=== PATIENT | male | born 1960 | race Caucasian/White ===

== ENCOUNTER 2021-03-22 13:10 | Inpatient (IN) | payer BC, OTHER ==
[~2021-03-22] VITALS: Ht 175.3 cm; Wt 91.5 kg
[2021-03-22] MEDS ORDERED: MORPHINE SULFATE 4 MG/ML SYR/VIAL IV ONE ×2 (14:30→16:45)
[2021-03-22] MEDS ORDERED: diazePAM 5 MG TAB PO ONE (14:30)
[2021-03-22] MEDS ORDERED: ONDANSETRON HCL 4 MG/2 ML VIAL IV ONE (14:30)
[2021-03-22] MEDS ORDERED: LORazepam 2MG/ML-1ML VIAL IV ONE (16:45)
[2021-03-22] MEDS ORDERED: HYDROmorphone HCL 2 MG/ML VL IV ONE (19:30)
[2021-03-22 20:30] LABS: Basophils # (auto) 0.1 10 ^3/uL (0-0.2); Basophils % (auto) 0.9 % (0.0-2.0); Eosinophils # (auto) 0 10 ^3/uL (0-0.8); Eosinophils % (auto) 0.1 % (0.0-7.0); Hematocrit 40.6 % (41.0-53.0); Hemoglobin 14.6 g/dL (13.5-17.5); Lymphocytes # (auto) 0.4 10 ^3/uL (0.4-5.4); Lymphocytes % (auto) 2.4 % (10.0-50.0); Mean Corpuscular Hemoglobin 33.4 pg (28.0-32.0); Mean Corpuscular Volume 92.7 fL (80.0-100.0); Monocytes # (auto) 0.9 10 ^3/uL (0-1.3); Monocytes % (auto) 5.3 % (0.0-12.0); Neutrophils # (auto) 15.1 10 ^3/uL (1.6-8.6); Neutrophils % (auto) 91.3 % (37.0-80.0); Nucleated Red Blood Cells % 0.2 %; Red Blood Cells 4.38 10^6/uL (4.5-5.90); Red Cell Distribution Width 13.5 % (11.8-14.3); White Blood Cell 16.5 10^3/uL (4.4-10.8)
[2021-03-22 20:39] LABS: BUN/Creatinine Ratio 22.5; Calcium 9.9 mg/dL (8.5-10.1); Potassium 4.2 mmol/L (3.5-5.1)
[2021-03-22] MEDS ORDERED: DEXTROSE (50%) 50ML SYRG IV PRN (23:30)
[2021-03-22] MEDS ORDERED: DOCUSATE SOD 100 MG CAP PO PRN (23:30)
[2021-03-22] MEDS ORDERED: LORazepam 2MG/ML-1ML VIAL IV PRN (23:30)
[2021-03-22] MEDS ORDERED: cefTRIAXone 1GM/50ML D5W 50 ML IV ONE (23:30)
[2021-03-22] MEDS: SODIUM CHLORIDE 0.9% 1,000 ML IV SCH (23:30)
[2021-03-22] MEDS ORDERED: MORPHINE SULFATE 4 MG/ML SYR/VIAL IV PRN (23:30)
[2021-03-22] MEDS ORDERED: ACETAMINOPHEN 325 MG TAB PO PRN (23:30)
[2021-03-23] VITALS (8 sets, daily range): BP systolic 130–170; BP diastolic 65–93
[2021-03-23] MEDS: HYDROcodone-ACET 5/325MG TAB PO PRN ×2 (00:09→08:17)
[2021-03-23] MEDS ORDERED: MORPHINE SULFATE INJECTION 2 MG/ML SYRG IV PRN (00:15)
[2021-03-23] MEDS ORDERED: NITROGLYCERIN 0.4 MG SL TAB SL PRN (00:15)
[2021-03-23] MEDS: ONDANSETRON HCL 4 MG/2 ML VIAL IV PRN (00:59)
[2021-03-23] MEDS ORDERED: CALCIUM CARB 500 MG CHEW TAB PO ONE (01:00)
[2021-03-23] MEDS ORDERED: KETOROLAC TROMETH 30 MG/ML 1ML VIAL IV ONE (01:00)
[2021-03-23] MEDS ORDERED: ATOR20TA PO (02:17)
[2021-03-23] MEDS ORDERED: LISI20TA28 PO (02:17)
[2021-03-23] MEDS ORDERED: ASPI-543 PO (02:17)
[2021-03-23] MEDS ORDERED: METF-371 PO (02:17)
[2021-03-23] MEDS: ACCU-CHEK COMFORT CURVE STRIP VI SCH ×4 (07:16→22:15)
[2021-03-23] MEDS: InsuLIN REG 1unit/0.01ml Soln (100units/ml) SC SCH ×5 (07:17→22:15)
[2021-03-23 09:54] LABS: Basophils # (auto) 0.1 10 ^3/uL (0-0.2); Basophils % (auto) 0.5 % (0.0-2.0); Eosinophils # (auto) 0 10 ^3/uL (0-0.8); Hematocrit 37.3 % (41.0-53.0); Hemoglobin 13.5 g/dL (13.5-17.5); Lymphocytes # (auto) 0.1 10 ^3/uL (0.4-5.4); Lymphocytes % (auto) 1.1 % (10.0-50.0); Mean Corpuscular Hemoglobin 33.7 pg (28.0-32.0); Mean Corpuscular Hgb Conc. 36.2 g/dL (32.0-36.0); Mean Corpuscular Volume 93.2 fL (80.0-100.0); Monocytes # (auto) 0.3 10 ^3/uL (0-1.3); Neutrophils # (auto) 10.8 10 ^3/uL (1.6-8.6); Neutrophils % (auto) 95.4 % (37.0-80.0); Red Cell Distribution Width 13.4 % (11.8-14.3); White Blood Cell 11.3 10^3/uL (4.4-10.8)
[2021-03-23 10:12] LABS: Albumin 3.9 g/dL (3.4-5.0); Calcium 9.2 mg/dL (8.5-10.1); Potassium 4.3 mmol/L (3.5-5.1)
[2021-03-23 10:16] LABS: BUN/Creatinine Ratio 28.7; Bilirubin, Total 0.5 mg/dL (0.2-1.0); Total Protein 7.4 g/dL (6.4-8.2)
[2021-03-23] MEDS: hydrALAZINE HCL 20 MG/ML VL IV PRN ×2 (10:20→17:51)
[2021-03-23] MEDS: ASCORBIC ACID 500 MG TAB PO SCH ×2 (10:24→20:29)
[2021-03-23] MEDS: ZINC SULFATE 220mg CAP or TAB PO SCH (10:24)
[2021-03-23] MEDS: ENOXAPARIN SOD 40 MG/0.4 ML SYRINGE SC SCH (10:24)
[2021-03-23] MEDS: MULTIPLE VITAMIN TAB PO SCH (10:24)
[2021-03-23] MEDS: FAMOTIDINE (10MG/ML) 2ML VL IV SCH ×2 (10:24→20:29)
[2021-03-23] MEDS ORDERED: HYDROmorphone HCL 2 MG/ML VL IV PRN ×2 (11:00→11:30)
[2021-03-23] MEDS ORDERED: LORazepam 2MG/ML-1ML VIAL IV PRN (11:00)
[2021-03-23] MEDS: HYDROmorphone HCL 2 MG/ML VL IV PRN ×3 (11:29→20:25)
[2021-03-23] MEDS ORDERED: ATEN50TA PO (11:49)
[2021-03-23] MEDS ORDERED: CLON0.1T PO (11:49)
[2021-03-23] MEDS: oxyCODONE HCL 5MG TAB PO PRN ×2 (12:51→17:50)
[2021-03-23] MEDS: cloNIDine HCL 0.1 MG TAB PO SCH (14:39)
[2021-03-23] MEDS: SODIUM CHLORIDE 0.9% 1,000 ML IV SCH (16:10)
[2021-03-23 17:00] LABS: Urine Bacteria NONE SEEN /hpf (None Seen); Urine Blood TRACE /uL (Negative); Urine Hyaline Cast FEW /lpf (0 - 2); Urine Mucus FEW (None Seen); Urine Specific Gravity 1.023 (1.001-1.035); Urine WBC 1 /hpf (0 - 3)
[2021-03-23] MEDS ORDERED: ATENOLOL 50 MG TAB PO SCH (20:00)
[2021-03-23] MEDS: ATORVASTATIN 20 MG TAB PO SCH (20:29)
[2021-03-23] MEDS: cefTRIAXone 1GM/50ML D5W 50 ML IV SCH (20:29)
[2021-03-24] MEDS: HYDROmorphone HCL 2 MG/ML VL IV PRN ×4 (03:10→21:39)
[2021-03-24 05:04] VITALS: BP 133/72
[2021-03-24] MEDS: ACCU-CHEK COMFORT CURVE STRIP VI SCH ×4 (06:07→22:00)
[2021-03-24] MEDS: oxyCODONE HCL 5MG TAB PO PRN (06:44)
[2021-03-24] MEDS: FAMOTIDINE (10MG/ML) 2ML VL IV SCH (08:23)
[2021-03-24] MEDS: ENOXAPARIN SOD 40 MG/0.4 ML SYRINGE SC SCH (08:28)
[2021-03-24 08:30] VITALS: BP 142/75
[2021-03-24] MEDS: LISINOPRIL 20 MG TAB PO SCH (08:31)
[2021-03-24] MEDS: ASCORBIC ACID 500 MG TAB PO SCH ×2 (08:31→21:35)
[2021-03-24] MEDS: ASPirin 81 mg TAB PO SCH (08:32)
[2021-03-24] MEDS: cloNIDine HCL 0.1 MG TAB PO SCH (08:32)
[2021-03-24] MEDS: ZINC SULFATE 220mg CAP or TAB PO SCH (08:32)
[2021-03-24] MEDS: MULTIPLE VITAMIN TAB PO SCH (08:32)
[2021-03-24 08:57] VITALS: BP 142/75
[2021-03-24] MEDS ORDERED: VANCOMYCIN PER PHARMACY 0 MG IV SCH (09:15)
[2021-03-24] MEDS ORDERED: VANCOMYCIN 1GM/250ML 250 ML IV ONE (09:15)
[2021-03-24] MEDS: SODIUM CHLORIDE 0.9% 1,000 ML IV SCH ×3 (09:17→17:40)
[2021-03-24 09:20] VITALS: BP 121/71
[2021-03-24 10:07] LABS: Alcohol, Urine < 3.0 mg/dL (0-10); Amphetamine Screen, Urine NEGATIVE (NEGATIVE); Barbiturate Scree,Urine NEGATIVE (NEGATIVE); Benzodiazephine Screen, Urine POSITIVE (NEGATIVE); Cannabinoid Screen, Urine NEGATIVE (NEGATIVE); Cocaine Screen, Urine NEGATIVE (NEGATIVE); Opiate Scree,Urine POSITIVE (NEGATIVE); Phencyclidine Screen, Urine NEGATIVE (NEGATIVE)
[2021-03-24] MEDS: InsuLIN REG 1unit/0.01ml Soln (100units/ml) SC SCH ×3 (12:07→21:46)
[2021-03-24 13:00] VITALS: BP 119/73
[2021-03-24] MEDS: LORazepam 2MG/ML-1ML VIAL IV SCH (14:26)
[2021-03-24 17:00] VITALS: BP 121/73
[2021-03-24] MEDS: cefTRIAXone 1GM/50ML D5W 50 ML IV SCH (20:50)
[2021-03-24] MEDS: ATENOLOL 50 MG TAB PO SCH (20:50)
[2021-03-24] MEDS: ATORVASTATIN 20 MG TAB PO SCH (21:35)
[2021-03-25] MEDS: FAMOTIDINE (10MG/ML) 2ML VL IV SCH ×3 (00:17→21:38)
[2021-03-25] MEDS: VANCOMYCIN 1GM/250ML 250 ML IV SCH ×2 (00:17→12:02)
[2021-03-25] MEDS: LORazepam 2MG/ML-1ML VIAL IV SCH ×3 (00:17→17:11)
[2021-03-25] MEDS: SODIUM CHLORIDE 0.9% 1,000 ML IV SCH ×4 (04:06→21:49)
[2021-03-25 05:00] VITALS: BP 155/75
[2021-03-25] MEDS: HYDROmorphone HCL 2 MG/ML VL IV PRN ×4 (05:36→22:40)
[2021-03-25 06:04] LABS: Calcium 8.5 mg/dL (8.5-10.1); Potassium 3.5 mmol/L (3.5-5.1)
[2021-03-25 06:06] LABS: BUN/Creatinine Ratio 31.6
[2021-03-25] MEDS: InsuLIN REG 1unit/0.01ml Soln (100units/ml) SC SCH ×4 (06:24→21:50)
[2021-03-25] MEDS: ACCU-CHEK COMFORT CURVE STRIP VI SCH ×4 (06:24→21:39)
[2021-03-25 08:47] VITALS: BP 139/82
[2021-03-25] MEDS: ASPirin 81 mg TAB PO SCH (09:26)
[2021-03-25] MEDS: LISINOPRIL 20 MG TAB PO SCH (09:27)
[2021-03-25] MEDS: MULTIPLE VITAMIN TAB PO SCH (09:27)
[2021-03-25] MEDS: cloNIDine HCL 0.1 MG TAB PO SCH (09:27)
[2021-03-25] MEDS: ENOXAPARIN SOD 40 MG/0.4 ML SYRINGE SC SCH (09:28)
[2021-03-25] MEDS: ZINC SULFATE 220mg CAP or TAB PO SCH (09:28)
[2021-03-25] MEDS: ASCORBIC ACID 500 MG TAB PO SCH ×2 (09:28→21:38)
[2021-03-25 14:00] VITALS: BP 142/91
[2021-03-25] MEDS: oxyCODONE HCL 5MG TAB PO PRN (15:46)
[2021-03-25] MEDS: ATENOLOL 50 MG TAB PO SCH (17:13)
[2021-03-25] MEDS ORDERED: LORazepam 2MG/ML-1ML VIAL IV PRN (17:15)
[2021-03-25 17:32] VITALS: BP 158/97
[2021-03-25] MEDS: ATORVASTATIN 20 MG TAB PO SCH (21:38)
[2021-03-25] MEDS: cefTRIAXone 1GM/50ML D5W 50 ML IV SCH (21:38)
[2021-03-25 22:00] VITALS: BP 158/78
[2021-03-25] MEDS: hydrALAZINE HCL 20 MG/ML VL IV PRN (22:10)
[2021-03-25 22:40] VITALS: BP 148/82
[2021-03-26] MEDS: VANCOMYCIN 1GM/250ML 250 ML IV SCH ×3 (00:14→22:02)
[2021-03-26] MEDS: LORazepam 2MG/ML-1ML VIAL IV SCH ×3 (00:14→16:00)
[2021-03-26] MEDS: ONDANSETRON HCL 4 MG/2 ML VIAL IV PRN (02:47)
[2021-03-26] MEDS: HYDROmorphone HCL 2 MG/ML VL IV PRN ×3 (03:18→18:30)
[2021-03-26 04:55] VITALS: BP 166/84
[2021-03-26 05:22] VITALS: BP 144/90
[2021-03-26] MEDS: SODIUM CHLORIDE 0.9% 1,000 ML IV SCH ×4 (05:58→23:00)
[2021-03-26] MEDS: InsuLIN REG 1unit/0.01ml Soln (100units/ml) SC SCH ×4 (06:00→22:17)
[2021-03-26] MEDS: ACCU-CHEK COMFORT CURVE STRIP VI SCH ×4 (06:00→22:18)
[2021-03-26] MEDS: ZINC SULFATE 220mg CAP or TAB PO SCH (08:48)
[2021-03-26] MEDS: ASPirin 81 mg TAB PO SCH (08:48)
[2021-03-26] MEDS: LISINOPRIL 20 MG TAB PO SCH (08:48)
[2021-03-26] MEDS: ASCORBIC ACID 500 MG TAB PO SCH ×2 (08:49→22:03)
[2021-03-26] MEDS: MULTIPLE VITAMIN TAB PO SCH (08:49)
[2021-03-26] MEDS: cloNIDine HCL 0.1 MG TAB PO SCH (08:49)
[2021-03-26] MEDS: FAMOTIDINE (10MG/ML) 2ML VL IV SCH ×2 (08:50→22:02)
[2021-03-26] MEDS: ENOXAPARIN SOD 40 MG/0.4 ML SYRINGE SC SCH (08:50)
[2021-03-26] MEDS ORDERED: methylPREDNISolone SOD SUCC 125 MG/2 ML VL IV ONE (11:30)
[2021-03-26] MEDS ORDERED: MIDAZOLAM HCL 2MG/2ML 2ml VIAL (1mg/ml) IV ONE (13:00)
[2021-03-26 13:20] VITALS: BP 153/86
[2021-03-26] MEDS ORDERED: LORazepam 2MG/ML-1ML VIAL IV ONE (13:45)
[2021-03-26] MEDS ORDERED: LACTULOSE 20Gm/30ML SOLN PO ONE (13:45)
[2021-03-26] MEDS ORDERED: GADOTERATE MEG 10 MMOL/20ml INJ (0.5MMOL/ml) IV ONE (14:38)
[2021-03-26 17:45] VITALS: BP 166/79
[2021-03-26] MEDS: ATENOLOL 50 MG TAB PO SCH (18:29)
[2021-03-26] MEDS: hydrALAZINE HCL 20 MG/ML VL IV PRN (18:48)
[2021-03-26 22:00] VITALS: BP 144/70
[2021-03-26] MEDS: ATORVASTATIN 20 MG TAB PO SCH (22:02)
[2021-03-26] MEDS: cefTRIAXone 1GM/50ML D5W 50 ML IV SCH (23:04)
[2021-03-27] MEDS: LORazepam 2MG/ML-1ML VIAL IV SCH ×3 (00:39→16:31)
[2021-03-27] MEDS: VANCOMYCIN 1GM/250ML 250 ML IV SCH ×3 (05:26→21:41)
[2021-03-27] MEDS: SODIUM CHLORIDE 0.9% 1,000 ML IV SCH ×4 (05:40→21:55)
[2021-03-27] MEDS: InsuLIN REG 1unit/0.01ml Soln (100units/ml) SC SCH ×4 (07:06→21:56)
[2021-03-27] MEDS: ACCU-CHEK COMFORT CURVE STRIP VI SCH ×5 (07:07→21:54)
[2021-03-27 08:30] VITALS: BP 165/75
[2021-03-27] MEDS: LISINOPRIL 20 MG TAB PO SCH (09:23)
[2021-03-27] MEDS: oxyCODONE HCL 5MG TAB PO PRN ×3 (09:24→21:43)
[2021-03-27] MEDS: ZINC SULFATE 220mg CAP or TAB PO SCH (09:24)
[2021-03-27] MEDS: cloNIDine HCL 0.1 MG TAB PO SCH (09:25)
[2021-03-27] MEDS: ASCORBIC ACID 500 MG TAB PO SCH ×2 (09:26→21:42)
[2021-03-27] MEDS: MULTIPLE VITAMIN TAB PO SCH (09:26)
[2021-03-27] MEDS: ASPirin 81 mg TAB PO SCH (09:26)
[2021-03-27] MEDS: ENOXAPARIN SOD 40 MG/0.4 ML SYRINGE SC SCH (09:27)
[2021-03-27] MEDS: FAMOTIDINE (10MG/ML) 2ML VL IV SCH ×2 (09:28→21:41)
[2021-03-27] MEDS: methylPREDNISolone SOD SUCC 125 MG/2 ML VL IV SCH (09:28)
[2021-03-27 11:22] LABS: INR 1.1 (0.9-1.15)
[2021-03-27 12:30] VITALS: BP 155/88
[2021-03-27] MEDS ORDERED: LIDOCAINE 1% (LOCAL ANESTH.) PF 5ml SDV ID ONE (13:00)
[2021-03-27] MEDS ORDERED: DEXTROSE (50%) 50ML SYRG IV PRN (16:45)
[2021-03-27] MEDS ORDERED: InsuLIN REG 1unit/0.01ml Soln (100units/ml) IV ONE (16:45)
[2021-03-27 17:00] VITALS: BP 169/106
[2021-03-27] MEDS ORDERED: InsuLIN REG 1unit/0.01ml Soln (100units/ml) SC ONE (17:30)
[2021-03-27] MEDS: ATENOLOL 50 MG TAB PO SCH (17:42)
[2021-03-27 21:14] VITALS: BP 156/82
[2021-03-27] MEDS: SODIUM CHLOR 0.9% PF (SALINE LOCK) 10ML VIAL/SYR IV SCH (21:42)
[2021-03-27] MEDS: ATORVASTATIN 20 MG TAB PO SCH (21:42)
[2021-03-27] MEDS: hydrALAZINE HCL 20 MG/ML VL IV PRN (21:44)
[2021-03-27] MEDS: cefTRIAXone 1GM/50ML D5W 50 ML IV SCH (22:49)
[2021-03-28] MEDS: LORazepam 2MG/ML-1ML VIAL IV SCH ×3 (00:44→17:19)
[2021-03-28] MEDS: VANCOMYCIN 1GM/250ML 250 ML IV SCH ×3 (03:42→17:18)
[2021-03-28 05:07] VITALS: BP 149/79
[2021-03-28] MEDS: HYDROmorphone HCL 2 MG/ML VL IV PRN ×2 (05:31→22:57)
[2021-03-28 09:00] VITALS: BP 161/79
[2021-03-28] MEDS: FAMOTIDINE (10MG/ML) 2ML VL IV SCH ×2 (10:00→22:56)
[2021-03-28] MEDS: ASPirin 81 mg TAB PO SCH (10:00)
[2021-03-28] MEDS: ZINC SULFATE 220mg CAP or TAB PO SCH (10:00)
[2021-03-28] MEDS: ENOXAPARIN SOD 40 MG/0.4 ML SYRINGE SC SCH (10:00)
[2021-03-28] MEDS: SODIUM CHLOR 0.9% PF (SALINE LOCK) 10ML VIAL/SYR IV SCH ×2 (10:00→23:00)
[2021-03-28] MEDS: LISINOPRIL 20 MG TAB PO SCH (10:00)
[2021-03-28] MEDS: cloNIDine HCL 0.1 MG TAB PO SCH (10:00)
[2021-03-28] MEDS: MULTIPLE VITAMIN TAB PO SCH (10:00)
[2021-03-28] MEDS: ASCORBIC ACID 500 MG TAB PO SCH ×2 (11:20→22:56)
[2021-03-28] MEDS: oxyCODONE HCL 5MG TAB PO PRN ×2 (11:21→11:24)
[2021-03-28] MEDS: methylPREDNISolone SOD SUCC 125 MG/2 ML VL IV SCH ×2 (11:22→11:25)
[2021-03-28] MEDS: ACCU-CHEK COMFORT CURVE STRIP VI SCH ×3 (11:30→23:19)
[2021-03-28] MEDS: InsuLIN REG 1unit/0.01ml Soln (100units/ml) SC SCH ×3 (11:30→23:16)
[2021-03-28 13:00] VITALS: BP 150/83
[2021-03-28 17:00] VITALS: BP 164/86
[2021-03-28] MEDS: ATENOLOL 50 MG TAB PO SCH (17:18)
[2021-03-28 22:00] VITALS: BP 160/94
[2021-03-28] MEDS: ATORVASTATIN 20 MG TAB PO SCH (22:56)
[2021-03-28] MEDS: hydrALAZINE HCL 20 MG/ML VL IV PRN (22:58)
[2021-03-28] MEDS: cefTRIAXone 1GM/50ML D5W 50 ML IV SCH (22:59)
[2021-03-29] MEDS: VANCOMYCIN 1GM/250ML 250 ML IV SCH ×4 (00:28→23:17)
[2021-03-29] MEDS: LORazepam 2MG/ML-1ML VIAL IV SCH ×3 (01:08→16:00)
[2021-03-29 05:00] VITALS: BP 151/81
[2021-03-29] MEDS: HYDROmorphone HCL 2 MG/ML VL IV PRN (06:36)
[2021-03-29] MEDS: InsuLIN REG 1unit/0.01ml Soln (100units/ml) SC SCH ×4 (06:37→21:47)
[2021-03-29] MEDS: ACCU-CHEK COMFORT CURVE STRIP VI SCH ×4 (06:38→21:48)
[2021-03-29 09:10] VITALS: BP 166/95
[2021-03-29] MEDS: ASCORBIC ACID 500 MG TAB PO SCH ×2 (10:00→21:34)
[2021-03-29] MEDS: ZINC SULFATE 220mg CAP or TAB PO SCH (10:00)
[2021-03-29] MEDS: LISINOPRIL 20 MG TAB PO SCH (10:00)
[2021-03-29] MEDS: FAMOTIDINE (10MG/ML) 2ML VL IV SCH ×2 (10:00→21:35)
[2021-03-29] MEDS: MULTIPLE VITAMIN TAB PO SCH (10:00)
[2021-03-29] MEDS: SODIUM CHLOR 0.9% PF (SALINE LOCK) 10ML VIAL/SYR IV SCH ×2 (10:00→21:34)
[2021-03-29] MEDS: ASPirin 81 mg TAB PO SCH (10:00)
[2021-03-29] MEDS: cloNIDine HCL 0.1 MG TAB PO SCH (10:00)
[2021-03-29] MEDS: ENOXAPARIN SOD 40 MG/0.4 ML SYRINGE SC SCH (10:00)
[2021-03-29 13:30] VITALS: BP 166/96
[2021-03-29] MEDS: oxyCODONE HCL 5MG TAB PO PRN (14:45)
[2021-03-29 17:18] VITALS: BP 166/96
[2021-03-29] MEDS: ATENOLOL 50 MG TAB PO SCH (18:00)
[2021-03-29 21:30] VITALS: BP 164/84
[2021-03-29] MEDS: SODIUM CHLORIDE 0.9% 1,000 ML IV SCH (21:32)
[2021-03-29] MEDS: cefTRIAXone 1GM/50ML D5W 50 ML IV SCH (21:33)
[2021-03-29] MEDS: ATORVASTATIN 20 MG TAB PO SCH (21:34)
[2021-03-29] MEDS: hydrALAZINE HCL 20 MG/ML VL IV PRN (22:16)
[2021-03-30] MEDS: LORazepam 2MG/ML-1ML VIAL IV SCH ×2 (02:14→10:06)
[2021-03-30] MEDS: VANCOMYCIN 1GM/250ML 250 ML IV SCH ×2 (04:59→10:06)
[2021-03-30 05:08] VITALS: BP 166/72
[2021-03-30] MEDS: HYDROmorphone HCL 2 MG/ML VL IV PRN (05:28)
[2021-03-30] MEDS: hydrALAZINE HCL 20 MG/ML VL IV PRN (05:28)
[2021-03-30 06:00] VITALS: BP 162/87
[2021-03-30] MEDS: InsuLIN REG 1unit/0.01ml Soln (100units/ml) SC SCH ×2 (06:33→11:30)
[2021-03-30] MEDS: ACCU-CHEK COMFORT CURVE STRIP VI SCH (06:34)
[2021-03-30 09:15] LABS: Basophils # (auto) 0.1 10 ^3/uL (0-0.2); Eosinophils # (auto) 0.1 10 ^3/uL (0-0.8); Hemoglobin 14.3 g/dL (13.5-17.5); White Blood Cell 15.8 10^3/uL (4.4-10.8)
[2021-03-30 09:16] LABS: Basophils % (auto) 0.7 % (0.0-2.0); Eosinophils % (auto) 0.6 % (0.0-7.0); Hematocrit 40.7 % (41.0-53.0); Lymphocytes # (auto) 3.5 10 ^3/uL (0.4-5.4); Lymphocytes % (auto) 22.2 % (10.0-50.0); Mean Corpuscular Hgb Conc. 35.2 g/dL (32.0-36.0); Monocytes # (auto) 1.3 10 ^3/uL (0-1.3); Monocytes % (auto) 8.2 % (0.0-12.0); Neutrophils # (auto) 10.8 10 ^3/uL (1.6-8.6); Neutrophils % (auto) 68.3 % (37.0-80.0); Red Blood Cells 4.47 10^6/uL (4.5-5.90); Red Cell Distribution Width 13.8 % (11.8-14.3)
[2021-03-30] MEDS: FAMOTIDINE (10MG/ML) 2ML VL IV SCH (10:06)
[2021-03-30] MEDS: methylPREDNISolone SOD SUCC 125 MG/2 ML VL IV SCH (10:07)
[2021-03-30] MEDS: LISINOPRIL 20 MG TAB PO SCH (10:09)
[2021-03-30] MEDS: ASCORBIC ACID 500 MG TAB PO SCH (10:10)
[2021-03-30] MEDS: ZINC SULFATE 220mg CAP or TAB PO SCH (10:10)
[2021-03-30] MEDS: MULTIPLE VITAMIN TAB PO SCH (10:10)
[2021-03-30] MEDS: ASPirin 81 mg TAB PO SCH (10:10)
[2021-03-30] MEDS: ENOXAPARIN SOD 40 MG/0.4 ML SYRINGE SC SCH (10:11)
[2021-03-30] MEDS: cloNIDine HCL 0.1 MG TAB PO SCH (10:12)
[2021-03-30] MEDS: oxyCODONE HCL 5MG TAB PO PRN ×2 (10:18→14:21)
== END 2021-03-30 14:35 | disposition short-term general hospital (02) | DRG 871 ==
LOC: EDBD 13:10 → ER 13:10 → OVERFLOW 03-23 00:07 → CENTRAL 03-23 01:59
PROVIDERS: ADMIT Nurse Practitioner Family; ATTEND Family Medicine
DX: A41.01 Sepsis due to Methicillin susceptible Staphylococcus aureus (principal); G93.41 Metabolic encephalopathy; G06.1 Intraspinal abscess and granuloma; M46.26 Osteomyelitis of vertebra, lumbar region; E11.42 Type 2 diabetes mellitus with diabetic polyneuropathy; E11.65 Type 2 diabetes mellitus with hyperglycemia; M47.26 Other spondylosis with radiculopathy, lumbar region; M43.16 Spondylolisthesis, lumbar region; M48.061 Spinal stenosis, lumbar region without neurogenic claudication; E11.69 Type 2 diabetes mellitus with other specified complication; F17.200 Nicotine dependence, unspecified, uncomplicated; I10 Essential (primary) hypertension; D72.829 Elevated white blood cell count, unspecified; E66.9 Obesity, unspecified; Z20.822 Contact with and (suspected) exposure to COVID-19; R53.81 Other malaise; Z82.49 Family history of ischemic heart disease and other diseases of the circulatory system; Z83.3 Family history of diabetes mellitus; Z85.46 Personal history of malignant neoplasm of prostate; Z85.47 Personal history of malignant neoplasm of testis
CPT/HCPCS: 36415; 36569; 71045; 72131; 72158; 80048; 80053; 80202; 80307; 80320; 81001; 82565; 82962; 83036; 85025; 85610; 87040; 87077; 87086; 87147; 87186; 87426; 95819; 96365; 96375; 96376; G0378; J0696; J1815; J1885; J2405; J3490

== ENCOUNTER 2024-07-31 18:18 | Inpatient (IN) | payer OTHER, MEDICAID ==
[~2024-07-31] VITALS: Ht 172.7 cm; Wt 92.1 kg
[~2024-07-31 18:18] MED LIST: ASPI-543 PO; ATEN50TA PO; ATOR20TA PO; CLON0.1T PO; LISI20TA56 PO; METF-371 PO
--- NOTE | 2024-07-31 18:53 | ED.PDOC ---
History of Present Illness HPI Comments 64 y/o obese M, with an extensive medical history, which includes angina, DM, and HTN, is BIBA for c/o intermittent, nonradiating chest pain, shortness of breath, and lightheadedness. Patient is a poor historian and endorses on sudden and unprovoked onset of symptoms, this morning, at around 0500. He reports pain being "stabbing" in quality and localized to "underneath [his] nipples" on both sides of his chest wall. Denies any palpitations, nausea, vomiting, fever, chills, or further associated symptoms at this time. Per EMS report, patient was found with tachycardic, with a rate in the 120's. Chief Complaint: Chest Pain Time Seen by MD: 18:20 Reviewed Notes: Nurses Notes, Signal Apprentice Notes, Medications, Allergies Allergies: Coded Allergies: NO KNOWN ALLERGIES (Unverified , 03/22/21) Home Meds Reported Medications Atenolol (Atenolol) 50 Mg Tab, 50 MG PO DAILY for 30 Days, MG 03/23/21 Clonidine Hydrochloride (Clonidine Hcl) 0.1 Mg Tab, 0.1 MG PO DAILY for 30 Days, MG 03/23/21 Atorvastatin Calcium (Lipitor) 20 Mg Tab, 1 TAB PO DAILY, #90 TAB 1 Refill 03/23/21 Metformin Hydrochloride (Metformin Hcl) 850 Mg Tab, 850 MG PO for 30 Days, MG 03/23/21 Aspirin (Aspir-Low) 81 Mg Tab, 81 MG PO DAILY for 30 Days, MG 03/23/21 Lisinopril (Lisinopril) 20 Mg Tab, 1 TAB PO DAILY, #30 TAB 5 Refills 03/23/21 Information Source: Patient Mode of Arrival: EMS Severity: Moderate Timing: Hours Duration: Since onset Prehospital treatment: 12 Lead EKG, Extension Service Agent Review of Systems: REVIEW OF SYSTEMS: No fever, no chills, or fatigue HEENT: No sore throat, no earache, no congestion, no neck pain. Cardiac: Chest pain. Lightheadedness. No palpitations. Lungs: Shortness of breath, no cough. GI: No nausea, no vomiting, no diarrhea, no constipation, no abdominal pain : No dysuria, frequency, or urgency. No hematuria. Musculoskeletal: No joint pain , no joint swelling, no extremity edema. Skin: No rash, no itching. Neuro: No headache, no dizziness, no weakness Vital Signs Vital Signs Date Time Temp Pulse Resp B/P (MAP) Pulse Ox O2 Delivery O2 Flow Rate FiO2 07/31/24 19:44 114 07/31/24 18:25 98.2 20 129/81 (97) 95 98.2 Physical Exam General: Awake, alert and oriented. No acute distress. Skin: Skin in warm, dry and intact. Appropriate color for ethnicity. HEENT: The head is normocephalic and atraumatic. Conjunctivae are clear without exudates or hemorrhage. Sclera is non-icteric. EOM are intact. No signs of nystagmus. Eyelids are normal in appearance without swelling or lesions. Oral mucosa is pink and moist Neck: The neck is supple with normal range of motion. No JVD. Cardiac: Heart rate rapid, rhythm regular. No murmurs, gallops, or rubs are auscultated. Respiratory: No signs of respiratory distress. Lung sounds are clear in all lobes bilaterally without rales, rhonchi, or wheezes. Abdominal: Abdomen is soft, non-tender without distention. Bowel sounds are present and normoactive in all four quadrants. Extremities: Upper and lower extremities are atraumatic in appearance without deformity or edema. Neurological: The patient is awake, alert and oriented to person, place, and time with normal speech. Speech is clear. There is no facial asymmetry. Psychiatric: Appropriate mood and affect. Good judgement and insight. Past Medical History PAST MEDICAL HISTORY: Angina, Cancer (prostate ), DM, HTN Past Medical History (Other): Sepsis with elevated white count unknown etiology: Bacteremia with MSSA: Continue vancomycin and Rocephin Intractable low back pain, consult for pain management Dr Keith, appreciated, continue Dilaudid Percocet neurology consult by Dr. Floyd appreciated Spondylolisthesis 7 mm L4 -5 with central canal stenosis History of testicular cancer status post right orchiectomy 1982 History of back pain 10 years ago on Worker's Comp. while working with [employer] History of polysubstance abuse: Methamphetamine cocaine opiates, patient; says he quit many years ago, will check urine drug screen, counseling done Surgical History (Other): Left prostate removal, left arm, ingrown hair back abscess removal Family History Family History: Reviewed,noncontributory to illness Social History Smoker: Other (nicotine vape ) Alcohol: Denies ETOH Use Drugs: Cocaine, Methamphetamine, Other (opiates) Lives In: Home Was a procedure done? Was a procedure done?: No EKG EKG : Pulse Rate (adult): 110 [place]: Normal Cardiac Rhythm: ST Block: None Hypertrophy: None ST: Normal Comments No STEMI Differential Dx Considerations may include: ID, ACS, PE, gastritis, gastroenteritis, angina, anxiety, among others X-Ray, Labs, Meds, VS Vital Signs Date Time Temp Pulse Resp B/P (MAP) Pulse Ox O2 Delivery O2 Flow Rate FiO2 07/31/24 19:44 114 07/31/24 18:53 110 07/31/24 18:25 98.2 110 20 129/81 (97) 95 98.2 07/31/24 18:21 110 Lab Test 07/31/24 19:49 07/31/24 18:58 Range/Units Troponin I High Sensitivity < 3 L 3 L </=54 ng/L White Blood Count 11.7 H 4.4-10.8 10^3/uL Red Blood Count 4.83 4.5-5.90 10^6/uL Hemoglobin 15.4 13.5-17.5 g/dL Hematocrit 43.8 41.0-53.0 % Mean Corpuscular Volume 90.7 80.0-100.0 fL Mean Corpuscular Hemoglobin 32.0 28.0-32.0 pg Mean Corpuscular Hemoglobin Concent 35.2 32.0-36.0 g/dL Red Cell Distribution Width 12.6 11.8-14.3 % Platelet Count 321 140-450 10^3/uL Mean Platelet Volume 7.6 6.9-10.8 fL Neutrophils (%) (Auto) 85.7 H 37.0-80.0 % Lymphocytes (%) (Auto) 6.2 L 10.0-50.0 % Monocytes (%) (Auto) 7.3 0.0-12.0 % Eosinophils (%) (Auto) 0.3 0.0-7.0 % Basophils (%) (Auto) 0.5 0.0-2.0 % Neutrophils # (Auto) 10.1 H 1.6-8.6 10 ^3/uL Lymphocytes # (Auto) 0.7 0.4-5.4 10 ^3/uL Monocytes # (Auto) 0.9 0-1.3 10 ^3/uL Eosinophils # (Auto) 0 0-0.8 10 ^3/uL Basophils # (Auto) 0.1 0-0.2 10 ^3/uL Nucleated Red Blood Cells 0.1 % D-Dimer, Quantitative 0.63 H 0.0-0.49 mg/L FEU Sodium Level 130 L 136-145 mmol/L Potassium Level 4.3 3.5-5.1 mmol/L Chloride Level 100 98-107 mmol/L Carbon Dioxide Level 19 L 20-31 mmol/L Anion Gap 11 5-15 Blood Urea Nitrogen 20 9-23 mg/dL Creatinine 0.98 0.700-1.30 mg/dL Glomerular Filtration Rate Calc 87 >90 mL/min BUN/Creatinine Ratio 20.4 H 10.0-20.0 Serum Glucose 306 H 74-106 mg/dL Calcium Level 10.3 8.7-10.4 mg/dL Total Bilirubin 0.5 0.2-1.0 mg/dL Aspartate Amino Transferase (AST) < 8 L 13-40 U/L Alanine Aminotransferase (ALT) 14 7-40 U/L Alkaline Phosphatase 96 46-116 U/L B-Type Natriuretic Peptide 6.47 0-100 pg/mL Total Protein 8.0 5.7-8.2 g/dL Albumin 5.2 H 3.2-4.8 g/dL Current Medications Medications (Trade) Dose Ordered Sig/Harrison Route Start Time Stop Time Status Last Admin Aspirin 324 mg ONCE ONCE PO 07/31/24 18:45 07/31/24 18:47 DC 07/31/24 22:11 Sodium Chloride 1,000 ml @ 1,000 mls/hr Q1H ONCE IV 07/31/24 20:15 07/31/24 21:14 DC 07/31/24 22:13 [place] [id number] Ph: [phone] DIAGNOSTIC IMAGING Diagnostic Imaging Report : [id number] Signed PATIENT: KELY EMERY ACCT: [id number] UNIT: [id number] : 1960 LOC: ER ROOM / BED: / AGE / SEX: 64 / M ADM STATUS: REG ER SERVICE 55 ORDERING PHYSICIAN: CARRINGTON ELMORE MD PROCEDURE(s): BLDVT - BiLat Lower DVT REASON: r/o dvt ORDER NUMBER(s): [id number], ACCESSION NUMBER(s): [id number] Procedure: US BiLat Lower DVT Study Date and Requested Time: 07/31/2024 08:17 PM History: r/o dvt Comparison: None Technique: Multiple high resolution ricks-scale images with and without compression obtained of the bilateral lower extremity veins, including the common femoral vein, deep femoral vein, proximal mid and distal superficial femoral vein, and popliteal vein. Additional limited images of the greater saphenous vein also obtained. Augmentation performed as indicated. Color and spectral doppler flow images obtained as indicated. Findings: No visible intraluminal venous thrombus. No evidence of incompressibility or abnormal color or spectral Doppler flow visualized in the bilateral lower extremity veins including, the common femoral vein, deep femoral vein, proximal mid and distal superficial femoral vein, and popliteal vein. Greater saphenous vein grossly unremarkable. Impression: No sonographic evidence of bilateral lower extremity deep venous thrombosis. ATED BY: SOPHIE LOPEZ DO DICTATED DATE/TIME: 07/31/242042 SIGNED BY: SOPHIE LOPEZ DO SIGNED DATE/TIME: 07/31/242042 CC: [place] [address] Ph: [phone] DIAGNOSTIC IMAGING Diagnostic Imaging Report : [id number] Signed PATIENT: KELY EMERY ACCT: [id number] UNIT: [id number] : 1960 LOC: ER ROOM / BED: / AGE / SEX: 64 / M ADM STATUS: REG ER SERVICE 55 ORDERING PHYSICIAN: CARRINGTON ELMORE MD PROCEDURE(s): CTACH - CT ANGIO CHEST CONTRAST REASON: r/o pe ORDER NUMBER(s): [id number], ACCESSION NUMBER(s): [id number] CTA Chest with intravenous contrast INDICATION: r/o pe COMPARISON: None TECHNIQUE: Multidetector spiral CTA of the chest was performed of the chest with intravenous contrast. PULMONARY ANGIOGRAPHY PROTOCOL was utilized using a bolus-tracking technique centered on the main pulmonary artery. Axial, coronal and sagittal multiplanar and MIP reformats were performed. Radiation Dose : 1. Chest: CTDI volume is 25.58 mGy. Dose-length product is 1072.21 mGy*cm The dose indicators for CT are the volume Computed Tomography (CT) Dose Index (CTDIvol) and the Dose Length Product (DLP), and are measured in units of mGy and mGy-cm, respectively. These indicators are not patient dose, but values generated from the CT scanner acquisition factors. The report includes radiation exposure data for exposures received during this examination. Findings: Pulmonary artery: Suboptimal contrast opacification. No definite evidence of pulmonary embolism. Lower neck: Unremarkable. Lungs: No focal consolidation. Pleura: No pleural effusion or pneumothorax. Heart/Vascular Structures: Normal heart size. Coronary artery calcifications. No pericardial effusion. Thoracic aorta is within normal limits. Mediastinum / Lymph Nodes: No abnormality demonstrated. No lymphadenopathy. Musculoskeletal: No acute osseous abnormality. Multilevel thoracic spondylosis. Soft tissues: Unremarkable. IMPRESSION: No definite evidence of pulmonary embolism or other acute thoracic finding. ATED BY: GLENROY PYLE MD DICTATED DATE/TIME: 07/31/242115 SIGNED BY: GLENROY PYLE MD SIGNED DATE/TIME: 07/31/242115 CC: [place] [address] Ph: [phone] DIAGNOSTIC IMAGING Diagnostic Imaging Report : [id number] Signed PATIENT: KELY EMERY ACCT: [id number] UNIT: [id number] : 1960 LOC: ER ROOM / BED: / AGE / SEX: 64 / M ADM STATUS: REG ER SERVICE 37 ORDERING PHYSICIAN: CARRINGTON ELMORE MD PROCEDURE(s): CXR1 - CHEST XRAY 1 VIEW REASON: cp ORDER NUMBER(s): [id number], ACCESSION NUMBER(s): [id number] CHEST RADIOGRAPH Indication: cp Technique: Single frontal view of the chest was obtained Comparison: CHEST PORTABLE on DOS: 03/27/21 FINDINGS: Lines and Tubes: None Lungs: No focal consolidation. Pleura: No effusion. No pneumothorax. Cardiomediastinal contours: Unremarkable Bones: No acute osseous abnormality. IMPRESSION: 1. No acute cardiopulmonary disease. 2. No significant change from prior study ATED BY: KHLOE SHETH Jr., DO DICTATED DATE/TIME: 07/31/242012 SIGNED BY: KHLOE SHETH Jr., SIGNED DATE/TIME: 07/31/242012 CC: Time of 1ST Reevaluation: 18:50 Reevaluation 1ST: Unchanged Patient Education/Counseling: Other (need for admission ) Family Education/Counseling: No Family Present Departure 1 Departure Time of Disposition: 20:04 Impression: Primary Impression: Chest pain Additional Impressions: Hyperglycemia Hyponatremia Sinus tachycardia Disposition: ADMITTED INPATIENT Condition: Stable Comments Patient admitted to hospitalist service for further treatment, evaluation and m onitoring. Extensive evaluation was performed in attempt to identify or rule out: (See differential diagnosis section) The following tests were ordered, and results were reviewed by me and discussed with patient: (See diagnostic results section) The following test were independently interpreted by me: EKG, chest x-ray (no acute disease) I reviewed and agreed with the following test results read by other providers: N/A I reviewed the following notes from the pt's past medical encounters: March 23, 2021 encounter for intractable lower back pain Additional information was gathered from interviewing the following independent historians: N/A Discussion of management or test interpretation with external physician/other qualified health healthcare administration intern: N/A Addressed an acute or chronic illness that poses a threat to life or bodily function: Hyponatremia, hyperglycemia, chest pain Decision regarding hospitalization or escalation of hospital level of care: Risk and benefits of admission for further treatment of patient's condition was considered. Due to patient's current clinical condition, high risk of decline and poor outcome if discharged and need for further inpatient management and monitoring, patient will be admitted to the hospital. Drug therapy requiring intensive monitoring for toxicity: IV contrast Parenteral controlled substances: N/A Decision regarding elective major surgery with identified patient or procedure risk factors: N/A Decision regarding emergency major surgery: N/A Decision not to resuscitate or to de-escalate care because of poor prognosis: N/A Diagnosis or treatment significantly limited by social determinants of health: N/A Critical Care Note Critical Care Time?: No Stability Stability form required: No Heart Score Heart Score: Heart Score Response (Comments) Value History Moderate Suspicious 1 EKG Normal 0 Age 45-64 1 Risk Factors >3 or Hx ASHD 2 Troponin Normal limit 0 Total 4 I personally scribed for CARRINGTON ELMORE MD ([email or web address]) on 07/31/24 at 18:53. Electronically submitted by Zi Song ([email or web address]). I personally scribed for CARRINGTON ELMORE MD ([email or web address]) on 07/31/24 at 22:05. Electronically submitted by Zi Song ([email or web address]). CARRINGTON ELMORE MD July 31, 2024 18:53
[2024-07-31 19:10] LABS: Basophils # (auto) 0.1 10 ^3/uL (0-0.2); Basophils % (auto) 0.5 % (0.0-2.0); Eosinophils # (auto) 0 10 ^3/uL (0-0.8); Eosinophils % (auto) 0.3 % (0.0-7.0); Hematocrit 43.8 % (41.0-53.0); Hemoglobin 15.4 g/dL (13.5-17.5); Lymphocytes # (auto) 0.7 10 ^3/uL (0.4-5.4); Lymphocytes % (auto) 6.2 % (10.0-50.0); Mean Corpuscular Hgb Conc. 35.2 g/dL (32.0-36.0); Mean Corpuscular Volume 90.7 fL (80.0-100.0); Monocytes # (auto) 0.9 10 ^3/uL (0-1.3); Monocytes % (auto) 7.3 % (0.0-12.0); Neutrophils # (auto) 10.1 10 ^3/uL (1.6-8.6); Neutrophils % (auto) 85.7 % (37.0-80.0); Nucleated Red Blood Cells % 0.1 %; Platelet Count (auto) 321 10^3/uL (140-450); Red Blood Cells 4.83 10^6/uL (4.5-5.90); Red Cell Distribution Width 12.6 % (11.8-14.3); White Blood Cell 11.7 10^3/uL (4.4-10.8)
[2024-07-31 19:29] LABS: Alanine Aminotransferase 14 U/L (7-40); Alkaline Phosphatase 96 U/L (46-116); Anion Gap 11 (5-15); BUN/Creatinine Ratio 20.4 (10.0-20.0); Bilirubin, Total 0.5 mg/dL (0.2-1.0); Blood Urea Nitrogen 20 mg/dL (9-23); Calcium 10.3 mg/dL (8.7-10.4); Chloride 100 mmol/L (98-107); Potassium 4.3 mmol/L (3.5-5.1)
[2024-07-31 19:34] LABS: Albumin 5.2 g/dL (3.2-4.8); Aspartate Aminotransferase < 8 U/L (13-40); Carbon Dioxide 19 mmol/L (20-31); Glucose 306 mg/dL (74-106); Sodium 130 mmol/L (136-145)
--- NOTE | 2024-07-31 20:15 | DVH ---
CHEST RADIOGRAPH Indication: cp Technique: Single frontal view of the chest was obtained Comparison: CHEST PORTABLE on DOS: 03/27/21 FINDINGS: Lines and Tubes: None Lungs: No focal consolidation. Pleura: No effusion. No pneumothorax. Cardiomediastinal contours: Unremarkable Bones: No acute osseous abnormality. IMPRESSION: 1. No acute cardiopulmonary disease. 2. No significant change from prior study
--- NOTE | 2024-07-31 20:46 | DVH ---
Procedure: US BiLat Lower DVT Study Date and Requested Time: 07/31/2024 08:17 PM History: r/o dvt Comparison: None Technique: Multiple high resolution ricks-scale images with and without compression obtained of the bi lateral lower extremity veins, including the common femoral vein, deep femoral vein, proximal mid and distal superficial femoral vein, and popliteal vein. Additional limited images of the greater saphen ous vein also obtained. Augmentation performed as indicated. Color and spectral doppler flow images o btained as indicated. Findings: No visible intraluminal venous thrombus. No evidence of incompressibility or abnormal color or spectr al Doppler flow visualized in the bilateral lower extremity veins including, the common femoral vein, deep femoral vein, proximal mid and distal superficial femoral vein, and popliteal vein. Greater sap henous vein grossly unremarkable. Impression: No sonographic evidence of bilateral lower extremity deep venous thrombosis.
--- NOTE | 2024-07-31 21:19 | DVH ---
CTA Chest with intravenous contrast INDICATION: r/o pe COMPARISON: None TECHNIQUE: Multidetector spiral CTA of the chest was performed of the chest with intravenous contrast . PULMONARY ANGIOGRAPHY PROTOCOL was utilized using a bolus-tracking technique centered on the main p ulmonary artery. Axial, coronal and sagittal multiplanar and MIP reformats were performed. Radiation Dose : 1. Chest: CTDI volume is 25.58 mGy. Dose-length product is 1072.21 mGy*cm The dose indicators for CT are the volume Computed Tomography (CT) Dose Index (CTDIvol) and the Dose Length Product (DLP), and are measured in units of mGy and mGy-cm, respectively. These indicators are not patient dose, but values generated from the CT scanner acquisition factors. The report includes radiation exposure data for exposures received during this examination. Findings: Pulmonary artery: Suboptimal contrast opacification. No definite evidence of pulmonary embolism. Lower neck: Unremarkable. Lungs: No focal consolidation. Pleura: No pleural effusion or pneumothorax. Heart/Vascular Structures: Normal heart size. Coronary artery calcifications. No pericardial effusion . Thoracic aorta is within normal limits. Mediastinum / Lymph Nodes: No abnormality demonstrated. No lymphadenopathy. Musculoskeletal: No acute osseous abnormality. Multilevel thoracic spondylosis. Soft tissues: Unremarkable. IMPRESSION: No definite evidence of pulmonary embolism or other acute thoracic finding.
[2024-07-31] MEDS ORDERED: ONDANSETRON HCL 4 MG/2 ML VIAL IV PRN (21:45)
[2024-07-31] MEDS ORDERED: NITROGLYCERIN 0.4 MG SL TAB SL PRN (21:45)
[2024-07-31] MEDS ORDERED: MORPHINE SULFATE INJ 2 MG/ml SYRG IV PRN (21:45)
[2024-07-31] MEDS ORDERED: DEXTROSE (50%) 50ML SYRG IV PRN (21:45)
[2024-07-31] MEDS: ASPirin 81 mg TAB PO ONE (22:11)
[2024-07-31] MEDS: ATORVASTATIN 20 MG TAB PO SCH (22:11)
[2024-07-31] MEDS: IOHEXOL 350 MG/ML 100ML IJ ONE (22:12)
[2024-07-31] MEDS: SODIUM CHLORIDE 0.9% 1,000 ML IV ONE (22:13)
[2024-07-31] MEDS: ACCU-CHEK COMFORT CURVE STRIP VI SCH (22:17)
[2024-07-31] MEDS: InsuLIN REG 1unit/0.01ml Soln (100units/ml) SC SCH (22:25)
[2024-07-31 22:26] VITALS: RESP 96; O2SAT 96
[2024-07-31 23:25] VITALS: BP 130/69; PULSE 107; RESP 18; TEMP 98.1; O2SAT 99
[2024-07-31] MEDS: HYDROcodone-ACET 5/325MG TAB PO PRN (23:36)
[2024-08-01] VITALS (7 sets, daily range): BP systolic 116–159; BP diastolic 63–98; PULSE 71–118; RESP 18–20; TEMP 98.1–99.5; O2SAT 91–98
--- NOTE | 2024-08-01 00:23 | DVHHP2 ---
History of Present Illness Reason for Visit: Chest pain History of Present Illness 64-year-old male presents for evaluation of chest pain. Patient reports a one day history of bilateral chest sharp chest pain that is nonradiating. He associates shortness for breath and a headache. Denies nausea or vomiting. No cough or fever. No other acute complaints reported. Past Medical History Diabetes mellitus, hypertension, cancer Past Surgical History Prostate surgery Family History Noncontributory Smoke: <1 pack per day ALCOHOL: none Drugs: Cocaine, Other (Amphetamine) Review of Systems Review of Systems Review of systems are currently negative otherwise addressed in HPI. Allergies: Coded Allergies: NO KNOWN ALLERGIES (Unverified , 03/22/21) Medications Current Medications Medications Dose Ordered Sig/Harrison Route Start Time Stop Time Status Last Admin Dose Admin Aspirin 81 mg DAILY PO 08/01/24 10:00 Atenolol 50 mg DAILY PO 08/01/24 10:00 Atorvastatin Calcium 20 mg HS PO 07/31/24 22:00 07/31/24 22:11 20 MG Lisinopril 20 mg DAILY PO 08/01/24 10:00 Diagnostic Test (Pha) 1 strip ACHS 07/31/24 22:00 07/31/24 22:17 1 STRIP Insulin Human Regular ACHS SC 07/31/24 22:00 07/31/24 22:25 10 UNITS Dextrose 50 ml UD PRN IV 07/31/24 21:45 Acetaminophen/ Hydrocodone Bitart 1 tab Q4HP PRN PO 07/31/24 21:45 07/31/24 23:36 1 TAB Ondansetron HCl 4 mg Q4HP PRN IV 07/31/24 21:45 Enoxaparin Sodium 40 mg DAILY SC 08/01/24 10:00 Acetaminophen 650 mg Q6HP PRN PO 07/31/24 21:45 Nitroglycerin 0.4 mg Q5MINP PRN SL 07/31/24 21:45 Morphine Sulfate 2 mg Q30M PRN IV 07/31/24 21:45 Exam Vital Signs Vital Signs Date Time Temp Pulse Resp B/P (MAP) Pulse Ox O2 Delivery O2 Flow Rate FiO2 07/31/24 23:25 98.1 107 18 130/69 (89) 99 98.1 07/31/24 22:26 Room Air* 0 21 Exam Gen: 64-year-old male in no apparent distress. Skin: Warm, dry, normal color and texture, no rash. HEENT: Normocephalic atraumatic, mucous membranes moist and pink. Neck: Cervical and supraclavicular nodes normal without enlargement, trachea is midline, thyroid gland is normal without masses. Pulmonary: Clear to auscultation and percussion bilaterally. Cardiac: Regular rate and rhythm. No murmur Abdomen: Soft, nontender, nondistended, bowel sounds present all 4 quadrants, no guarding, no rigidity, no organomegaly. Extremities: No cyanosis, clubbing, no edema Neuro: Cranial nerves II through XII grossly intact, normal affect and speech, no focal motor deficits. Labs/Xrays ORDERING PHYSICIAN: CARRINGTON ELMORE MD PROCEDURE(s): CXR1 - CHEST XRAY 1 VIEW REASON: cp ORDER NUMBER(s): [id number], ACCESSION NUMBER(s): [id number] CHEST RADIOGRAPH Indication: cp Technique: Single frontal view of the chest was obtained Comparison: CHEST PORTABLE on DOS: 03/27/21 FINDINGS: Lines and Tubes: None Lungs: No focal consolidation. Pleura: No effusion. No pneumothorax. Cardiomediastinal contours: Unremarkable Bones: No acute osseous abnormality. IMPRESSION: 1. No acute cardiopulmonary disease. 2. No significant change from prior study RING PHYSICIAN: CARRINGTON ELMORE MD PROCEDURE(s): CTACH - CT ANGIO CHEST CONTRAST REASON: r/o pe ORDER NUMBER(s): [id number], ACCESSION NUMBER(s): [id number] CTA Chest with intravenous contrast INDICATION: r/o pe COMPARISON: None TECHNIQUE: Multidetector spiral CTA of the chest was performed of the chest with intravenous contrast. PULMONARY ANGIOGRAPHY PROTOCOL was utilized using a bolus- tracking technique centered on the main pulmonary artery. Axial, coronal and sagittal multiplanar and MIP reformats were performed. Radiation Dose : 1. Chest: CTDI volume is 25.58 mGy. Dose-length product is 1072.21 mGy*cm The dose indicators for CT are the volume Computed Tomography (CT) Dose Index (CTDIvol) and the Dose Length Product (DLP), and are measured in units of mGy and mGy-cm, respectively. These indicators are not patient dose, but values generated from the CT scanner acquisition factors. The report includes radiation exposure data for exposures received during this examination. Findings: Pulmonary artery: Suboptimal contrast opacification. No definite evidence of pulmonary embolism. Lower neck: Unremarkable. Lungs: No focal consolidation. Pleura: No pleural effusion or pneumothorax. Heart/Vascular Structures: Normal heart size. Coronary artery calcifications. No pericardial effusion. Thoracic aorta is within normal limits. Mediastinum / Lymph Nodes: No abnormality demonstrated. No lymphadenopathy. Musculoskeletal: No acute osseous abnormality. Multilevel thoracic spondylosis. Soft tissues: Unremarkable. IMPRESSION: No definite evidence of pulmonary embolism or other acute thoracic finding. RING PHYSICIAN: CARRINGTON ELMORE MD PROCEDURE(s): BLDVT - BiLat Lower DVT REASON: r/o dvt ORDER NUMBER(s): [id number], ACCESSION NUMBER(s): [id number] Procedure: BiLat Lower DVT Study Date and Requested Time: 07/31/2024 08:17 PM History: r/o dvt Comparison: None Technique: Multiple high resolution ricks-scale images with and without compression obtained of the bilateral lower extremity veins, including the common femoral vein, deep femoral vein, proximal mid and distal superficial femoral vein, and popliteal vein. Additional limited images of the greater saphenous vein also obtained. Augmentation performed as indicated. Color and spectral doppler flow images obtained as indicated. Findings: No visible intraluminal venous thrombus. No evidence of incompressibility or abnormal color or spectral Doppler flow visualized in the bilateral lower extremity veins including, the common femoral vein, deep femoral vein, proximal mid and distal superficial femoral vein, and popliteal vein. Greater saphenous vein grossly unremarkable. Impression: No sonographic evidence of bilateral lower extremity deep venous thrombosis. Labs Test 07/31/24 19:49 07/31/24 18:58 Range/Units Troponin I High Sensitivity < 3 L </=54 ng/L White Blood Count 11.7 H 4.4-10.8 10^3/uL Red Blood Count 4.83 4.5-5.90 10^6/uL Hemoglobin 15.4 13.5-17.5 g/dL Hematocrit 43.8 41.0-53.0 % Mean Corpuscular Volume 90.7 80.0-100.0 fL Mean Corpuscular Hemoglobin 32.0 28.0-32.0 pg Mean Corpuscular Hemoglobin Concent 35.2 32.0-36.0 g/dL Red Cell Distribution Width 12.6 11.8-14.3 % Platelet Count 321 140-450 10^3/uL Mean Platelet Volume 7.6 6.9-10.8 fL Neutrophils (%) (Auto) 85.7 H 37.0-80.0 % Lymphocytes (%) (Auto) 6.2 L 10.0-50.0 % Monocytes (%) (Auto) 7.3 0.0-12.0 % Eosinophils (%) (Auto) 0.3 0.0-7.0 % Basophils (%) (Auto) 0.5 0.0-2.0 % Neutrophils # (Auto) 10.1 H 1.6-8.6 10 ^3/uL Lymphocytes # (Auto) 0.7 0.4-5.4 10 ^3/uL Monocytes # (Auto) 0.9 0-1.3 10 ^3/uL Eosinophils # (Auto) 0 0-0.8 10 ^3/uL Basophils # (Auto) 0.1 0-0.2 10 ^3/uL Nucleated Red Blood Cells 0.1 % D-Dimer, Quantitative 0.63 H 0.0-0.49 mg/L FEU Sodium Level 130 L 136-145 mmol/L Potassium Level 4.3 3.5-5.1 mmol/L Chloride Level 100 98-107 mmol/L Carbon Dioxide Level 19 L 20-31 mmol/L Anion Gap 11 5-15 Blood Urea Nitrogen 20 9-23 mg/dL Creatinine 0.98 0.700-1.30 mg/dL Glomerular Filtration Rate Calc 87 >90 mL/min BUN/Creatinine Ratio 20.4 H 10.0-20.0 Serum Glucose 306 H 74-106 mg/dL Calcium Level 10.3 8.7-10.4 mg/dL Total Bilirubin 0.5 0.2-1.0 mg/dL Aspartate Amino Transferase (AST) < 8 L 13-40 U/L Alanine Aminotransferase (ALT) 14 7-40 U/L Alkaline Phosphatase 96 46-116 U/L B-Type Natriuretic Peptide 6.47 0-100 pg/mL Total Protein 8.0 5.7-8.2 g/dL Albumin 5.2 H 3.2-4.8 g/dL Assessment/Plan Assessment/Plan Assessment Chest pain Uncontrolled diabetes mellitus Admit the patient to telemetry to the hospitalist Resume home medications Echocardiogram pending Continue treatment per orders. Plan discussed with: Patient My Orders Orders - JIMMY MULLIGAN AGACNP Procedure Category Date Status Time Aspirin Tablet PHA 08/01/24 In Process 10:00 Atenolol Tablet PHA 08/01/24 In Process (Tenormin Tablet) 10:00 Atorvastatin (Lipitor) PHA 07/31/24 In Process 22:00 Lisinopril Tablet PHA 08/01/24 In Process (Zestril Tablet) 10:00 Basic Metabolic Panel LAB 08/01/24 Logged 04:00 Glucose Blood PHA 07/31/24 In Process (Accu-Chek Comfort 22:00 Insulin R (Human) PHA 07/31/24 In Process (Insulin R) 22:00 Dextrose 50% Syringe PHA 07/31/24 In Process 21:45 Admit ADMIT 07/31/24 Transmitted 21:36 Hydrocodone-Acet PHA 07/31/24 In Process 5/325mg Tab ([place] 21:45 Ondansetron Hcl PHA 07/31/24 In Process (Zofran) 21:45 Enoxaparin Sodium PHA 08/01/24 In Process (Lovenox) 10:00 Cardiac DIET 08/01/24 Transmitted Diet-2gna,Lofat,Lochol Breakfast Echo 2d Mode Cardiac US 07/31/24 Logged DOP 21:36 Condition: Fair ILIANA 07/31/24 In Process 21:36 Acetaminophen Tablet PHA 07/31/24 In Process (Tylenol Tablet) 21:45 Bedrest With Bathroom ILIANA 07/31/24 In Process Privileg 21:36 Nitroglycerin PHA 07/31/24 In Process Sublingual (Ntrostat 21:45 Morphine Sulfate PHA 07/31/24 In Process Injection 21:45 Stat Ekg For Chest ILIANA 07/31/24 In Process Pain 21:36 Notify Of Changes ILIANA 07/31/24 In Process From Base 21:36 Release Coordinator For ILIANA 07/31/24 In Process 24 Hours 21:36 Emergency Dysrhythmia ILIANA 07/31/24 In Process Protocol 21:36 Rhythm Strips Once ILIANA 07/31/24 In Process Every Shift 21:36 Oxygen By Nasal RT 07/31/24 Transmitted Cannula 21:36 Date of Service: July 31, 2024 Billing Provider: JIMMY MULLIGAN Common Visit Codes: [id number] INP/OBS CARE (MOD) JIMMY MULLIGAN August 01, 2024 00:23
[2024-08-01] MEDS ORDERED: GABA300C PO (00:39)
[2024-08-01] MEDS: GABAPENTIN 100 MG CAP PO ONE (03:03)
[2024-08-01 05:19] LABS: Chloride 100 mmol/L (98-107); Potassium 3.9 mmol/L (3.5-5.1)
[2024-08-01 05:20] LABS: Anion Gap 11 (5-15); Carbon Dioxide 21 mmol/L (20-31)
[2024-08-01 05:21] LABS: Calcium 9.9 mg/dL (8.7-10.4)
[2024-08-01 05:25] LABS: BUN/Creatinine Ratio 22.7 (10.0-20.0); Blood Urea Nitrogen 20 mg/dL (9-23); Sodium 132 mmol/L (136-145)
[2024-08-01 05:27] LABS: Glucose 268 mg/dL (74-106)
--- NOTE | 2024-08-01 06:16 | ECG ---
[facility] Test Date: 2024-07-31 Test Time: 19:44:23 Pat Name: KELY EMERY Department: ED Room: 0292 Gender: M Plastics Engineer: YESENIA : 1960 Requested By: CARRINGTON ELMORE Order Number: [id number] Reading MD: Cabrera Oshea Measurements Intervals [place] Rate: 114 P: 65 GA: 143 QRS: 69 QRSD: 90 T: 62 QT: 308 QTc: 425 Interpretive Statements Sinus tachycardia Probable left atrial enlargement Electronically Signed On 08-04-2024 20:38:12 PDT by Cabrera Oshea Please click the below link to view image of tracing.
[2024-08-01] MEDS: ENOXAPARIN SOD 40 MG/0.4 ML SYRINGE SC SCH (09:42)
[2024-08-01] MEDS: ASPirin 81 mg TAB PO SCH (09:43)
[2024-08-01] MEDS: ATENOLOL 25 MG TAB PO SCH (09:43)
[2024-08-01] MEDS: LISINOPRIL 20 MG TAB PO SCH (09:44)
[2024-08-01 11:40] LABS: Amphetamine Screen, Urine Neg (NEGATIVE); Barbiturate Scree,Urine Neg (NEGATIVE); Benzodiazephine Screen, Urine Neg (NEGATIVE)
[2024-08-01 11:42] LABS: Cannabinoid Screen, Urine Neg (NEGATIVE); Cocaine Screen, Urine Neg (NEGATIVE); Opiate Scree,Urine Pos (NEGATIVE); Phencyclidine Screen, Urine Neg (NEGATIVE)
--- NOTE | 2024-08-01 12:06 | DVHPN2 ---
Progress Note Date Seen: August 01, 2024 Medical Necessity Reason Pt with a Central, PICC or Fol: No Subjective Patient reports: No new complaints Review of Systems: HEENT:Normal, CVS:Normal, RESPIRATORY:Normal, GI:Normal, :Normal, MSK:Normal, NEURO:Normal Objective vital signs Vital Sign Date Time Temp Pulse Resp B/P (MAP) Pulse Ox O2 Delivery O2 Flow Rate FiO2 08/01/24 09:44 138/82 08/01/24 09:43 111 08/01/24 09:00 99.5 20 94 99.5 08/01/24 00:33 Room Air* 0 21 Total Intake and Output 07/31/24 07/31/24 08/01/24 15:00 23:00 07:00 Intake Total 500 ml Output Total 1 ml Balance 499 ml medications Current Medications Medications Dose Ordered Sig/Harrison Route Start Time Stop Time Status Last Admin Dose Admin Aspirin 81 mg DAILY PO 08/01/24 10:00 08/01/24 09:43 81 MG Atenolol 50 mg DAILY PO 08/01/24 10:00 08/01/24 09:43 50 MG Atorvastatin Calcium 20 mg HS PO 07/31/24 22:00 07/31/24 22:11 20 MG Lisinopril 20 mg DAILY PO 08/01/24 10:00 08/01/24 09:44 20 MG Diagnostic Test (Pha) 1 strip ACHS 07/31/24 22:00 08/01/24 06:16 1 STRIP Insulin Human Regular ACHS SC 07/31/24 22:00 08/01/24 06:25 6 UNITS Dextrose 50 ml UD PRN IV 07/31/24 21:45 Acetaminophen/ Hydrocodone Bitart 1 tab Q4HP PRN PO 07/31/24 21:45 08/01/24 09:46 1 TAB Ondansetron HCl 4 mg Q4HP PRN IV 07/31/24 21:45 Enoxaparin Sodium 40 mg DAILY SC 08/01/24 10:00 08/01/24 09:42 40 MG Acetaminophen 650 mg Q6HP PRN PO 07/31/24 21:45 Nitroglycerin 0.4 mg Q5MINP PRN SL 07/31/24 21:45 Morphine Sulfate 2 mg Q30M PRN IV 07/31/24 21:45 Examination: GENERAL:Normal, HEENT:Normal, NECK:Normal, LUNGS:Normal, CVS:Normal, ABDOMEN:Normal, MSK:Normal, SKIN:Normal, NEURO:Normal, :Normal laboratory and microbiology Laboratory Tests 08/01/24 04:41 07/31/24 18:58 Test 08/01/24 04:41 Range/Units Serum Glucose 268 H 74-106 mg/dL Problem List/Assessment/Plan Problem List/Assessment/Plan #1 chest pain ?cad: cardio eval #2 dm: ssi #3 htn #4 peripheral neuropathy: resume meds #5 tobacco abuse: advised to quit, nicotine patch- time spent 11 mins #6 obesity advance care planning- full code- time spent 18mins Plan discussed with: Patient Date of Service: August 01, 2024 Billing Provider: JIMMY STORY MD Common Visit Codes: [id number] INP/OBS CARE(HIGH) Secondary Visit Codes: [id number] CHNG SMOKING >10MIN, [id number] CARE PLAN 30 MINUTES JIMMY STORY MD August 01, 2024 12:06
[2024-08-01 12:29] LABS: Urine Bacteria FEW /hpf (None Seen); Urine Blood 3+ /uL (Negative); Urine Protein, UAD 1+ (Negative); Urine Specific Gravity 1.024 (1.001-1.035); Urine Squamous Epithelial Cell FEW /hpf (<5); Urine Urobilinogen Normal (Negative); Urine WBC 108 /HPF (0-3); Urine pH 5.5 (5.0-9.0)
[2024-08-01 12:30] LABS: Urine Clarity Cloudy (Clear); Urine Color Red (Yellow)
[2024-08-01] MEDS: GABAPENTIN 300 MG CAP PO ONE (12:44)
--- NOTE | 2024-08-01 12:47 | ECG ---
[facility] Test Date: 2024-07-31 Test Time: 18:21:21 Pat Name: KELY EMERY Department: ED Room: 0292 Gender: M Accounts Payable Accountant: Randy : 1960 Requested By: CARRINGTON ELMORE Order Number: [id number] Reading MD: Cabrera Oshea Measurements Intervals [place] Rate: 110 P: 77 WV: 158 QRS: 70 QRSD: 87 T: 64 QT: 307 QTc: 416 Interpretive Statements Sinus tachycardia Electronically Signed On 08-04-2024 20:37:21 PDT by Cabrera Oshea Please click the below link to view image of tracing.
--- NOTE | 2024-08-01 13:56 | DVHINCON2 ---
[facility] SANDR[facility] 08/01/24 1356: Date Seen: August 01, 2024 Referring Physician MD Mellisa Reason for Consultation Chest pain History of Present Illness This is a 64-year-old man who presented to the emergency room via EMS with a chief complaint of chest pain. Describes his chest pain as bilateral to the right and left areas, unprovoked, sharp/stabbing in nature with description as "electrical impulses," and radiating to his abdominal and bilateral lower extremities. Palpating the area makes the pain worse nevertheless patient also states massaging the chest makes it better. The patient endorses his peripheral neuropathy is now extending to his chest wall area. Denies SOB, palpitations, or diaphoresis. Underwent multiple 12 lead electrocardiograms x2 revealing a sinus tachycardia rhythm with nonspecific ST changes. Significant medical history includes hypertension, dyslipidemia [id number] diabetes mellitus, peripheral neuropathy, and nicotine dependence including tobacco use x 15 pack-years and current e-cigarette use. Past Medical History Past medical history reviewed. No other significant than mentioned above. Past Surgical History Right arm , 1975 Right testicle removal, 1982 Family History: Diabetes mellitus G8 FATHER Family History Family history reviewed. Significant with father from [place] at 42 y.o. Social History Admits to a cigarette use, vaping. Admits to occasional alcohol use. Reports history of methamphetamine use. Allergies: Coded Allergies: NO KNOWN ALLERGIES (Unverified , 03/22/21) Home Meds Reported Medications Gabapentin (Neurontin) 300 Mg Cap, 3 CAP PO TID, #90 CAP 3 Refills 08/01/24 Atenolol (Atenolol) 50 Mg Tab, 50 MG PO DAILY for 30 Days, MG 03/23/21 Clonidine Hydrochloride (Clonidine Hcl) 0.1 Mg Tab, 0.1 MG PO DAILY for 30 Days, MG 03/23/21 Atorvastatin Calcium (Lipitor) 20 Mg Tab, 1 TAB PO DAILY, #90 TAB 1 Refill 03/23/21 Metformin Hydrochloride (Metformin Hcl) 850 Mg Tab, 850 MG PO for 30 Days, MG 03/23/21 Aspirin (Aspir-Low) 81 Mg Tab, 81 MG PO DAILY for 30 Days, MG 03/23/21 Lisinopril (Lisinopril) 20 Mg Tab, 1 TAB PO DAILY, #30 TAB 5 Refills 12/25/21 Home Meds Home medications reviewed. Current Medications Current Medications Medications (Trade) Dose Ordered Sig/Harrison Route PRN Reason Start Time Stop Time Status Last Admin Aspirin 81 mg DAILY PO 08/01/24 10:00 08/01/24 09:43 Atenolol (Tenormin Tablet) 50 mg DAILY PO 08/01/24 10:00 08/01/24 09:43 Atorvastatin Calcium (Lipitor) 20 mg HS PO 07/31/24 22:00 07/31/24 22:11 Lisinopril (Zestril Tablet) 20 mg DAILY PO 08/01/24 10:00 08/01/24 09:44 Diagnostic Test (Pha) (Accu-Chek Comfort Curve T) 1 strip ACHS 07/31/24 22:00 08/01/24 11:30 Insulin Human Regular (InsuLIN R) ACHS SC 07/31/24 22:00 08/01/24 11:30 Dextrose 50 ml UD PRN IV Blood Sugar LESS THAN 60 07/31/24 21:45 Acetaminophen/ Hydrocodone Bitart ([place] 5/325MG Tab) 1 tab Q4HP PRN PO MODERATE PAIN (4-6 PAIN SCALE) 07/31/24 21:45 08/01/24 09:46 Ondansetron HCl (Zofran) 4 mg Q4HP PRN IV NAUSEA / VOMITING 07/31/24 21:45 Enoxaparin Sodium (Lovenox) 40 mg DAILY SC 08/01/24 10:00 08/01/24 12:02 DC 08/01/24 09:42 Acetaminophen (Tylenol Tablet) 650 mg Q6HP PRN PO PAIN SCALE 1-3 OR TEMP>100.4 07/31/24 21:45 Nitroglycerin (Ntrostat Sublingual) 0.4 mg Q5MINP PRN SL FOR CHEST PAIN 07/31/24 21:45 Morphine Sulfate 2 mg Q30M PRN IV FOR CHEST PAIN 07/31/24 21:45 Gabapentin (Neurontin Capsule) 900 mg TID PO 08/01/24 22:00 Zolpidem Tartrate (Ambien) 5 mg HSPRN PRN PO FOR INSOMNIA 08/01/24 12:30 Review of Systems Constitutional: No symptom reported Ears, Nose, & Throat: No symptom reported Eyes: No symptom reported Neurological: No symptoms reported Pulmonary/Respiratory: No symptom reported Cardiovascular: No symptom reported Gastrointestinal: No symptom reported Genitourinary: No symptom reported Musculoskeletal: Noncardiac chest pain Skin: No symptom reported Psychiatric: No symptom reported Endocrine: No symptom reported Hemotologic/Lymphatic: No symptom reported Vital Signs Vital Signs Date Time Temp Pulse Resp B/P (MAP) Pulse Ox O2 Delivery O2 Flow Rate FiO2 08/01/24 09:44 138/82 08/01/24 09:43 111 08/01/24 09:00 99.5 20 94 99.5 08/01/24 00:33 Room Air* 0 21 Physical Exam General Appearance: Cooperative. Well developed. Obese. In no acute distress Head Exam: Normal inspection Neck Exam: Normal inspection. Non-tender. Normal alignment Pulmonary/Respiratory: Chest tender to auscultation. Clear bilateral breath sounds Cardiovascular/Chest: Regular rate and rhythm. S1, S2. NSR. No murmurs. No J VD. Peripheral Pulses: 2+ Radial (R). 2+ Radial (L). 2+ Pedal (R). 2+ Pedal (L) Abdominal Exam: Normal bowel sounds. Soft. Nontender. No hepatospenomegaly. No masses Ankle Exam: Negative ankle edema Lower extremities: Negative lower extremity edema Neuro/Mental Status: A&O x4. Coherent Thoughts/Psych: Normal thought pattern. Anxious. Rambling thoughts Appearance: In no acute distress Skin Exam: Normal inspection. Normal color. Warm. Dry Labs/Diagnostic Data Labs Test 08/01/24 11:49 08/01/24 11:00 08/01/24 04:41 07/31/24 19:49 Range/Units POC Glucose 319 H 70-106 mg/dl Urine Color Red H Yellow Urine Clarity Cloudy H Clear Urine pH 5.5 5.0-9.0 Urine Specific [place] 1.024 1.001-1.035 Urine Protein 1+ H Negative Urine Ketones Negative Negative Urine Blood 3+ H Negative /uL Urine Nitrite Negative Negative Urine Bilirubin Negative Negative Urine Urobilinogen Normal Negative mg/dL Urine Leukocyte Esterase 2+ Negative /uL Urine RBC 1133 0 - 3 /hpf Urine Microscopic WBC 108 H 0-3 /HPF Urine Squamous Epithelial Cells Few <5 /hpf Urine Bacteria Few H None Seen /hpf Urine Glucose 4+ H Normal mg/dL Urine Opiates Screen Pos NEGATIVE Urine Fentanyl Screen Neg NEGATIVE Urine Barbiturates Screen Neg NEGATIVE Urine Phencyclidine Screen Neg NEGATIVE Urine Amphetamines Screen Neg NEGATIVE Urine Benzodiazepines Screen Neg NEGATIVE Urine Cocaine Screen Neg NEGATIVE Urine Cannabinoids Screen Neg NEGATIVE Sodium Level 132 L 136-145 mmol/L Potassium Level 3.9 3.5-5.1 mmol/L Chloride Level 100 98-107 mmol/L Carbon Dioxide Level 21 20-31 mmol/L Anion Gap 11 5-15 Blood Urea Nitrogen 20 9-23 mg/dL Creatinine 0.88 0.700-1.30 mg/dL Glomerular Filtration Rate Calc 97 >90 mL/min BUN/Creatinine Ratio 22.7 H 10.0-20.0 Serum Glucose 268 H 74-106 mg/dL Calcium Level 9.9 8.7-10.4 mg/dL Troponin I High Sensitivity < 3 L </=54 ng/L Test 07/31/24 18:58 Range/Units White Blood Count 11.7 H 4.4-10.8 10^3/uL Red Blood Count 4.83 4.5-5.90 10^6/uL Hemoglobin 15.4 13.5-17.5 g/dL Hematocrit 43.8 41.0-53.0 % Mean Corpuscular Volume 90.7 80.0-100.0 fL Mean Corpuscular Hemoglobin 32.0 28.0-32.0 pg Mean Corpuscular Hemoglobin Concent 35.2 32.0-36.0 g/dL Red Cell Distribution Width 12.6 11.8-14.3 % Platelet Count 321 140-450 10^3/uL Mean Platelet Volume 7.6 6.9-10.8 fL Neutrophils (%) (Auto) 85.7 H 37.0-80.0 % Lymphocytes (%) (Auto) 6.2 L 10.0-50.0 % Monocytes (%) (Auto) 7.3 0.0-12.0 % Eosinophils (%) (Auto) 0.3 0.0-7.0 % Basophils (%) (Auto) 0.5 0.0-2.0 % Neutrophils # (Auto) 10.1 H 1.6-8.6 10 ^3/uL Lymphocytes # (Auto) 0.7 0.4-5.4 10 ^3/uL Monocytes # (Auto) 0.9 0-1.3 10 ^3/uL Eosinophils # (Auto) 0 0-0.8 10 ^3/uL Basophils # (Auto) 0.1 0-0.2 10 ^3/uL Nucleated Red Blood Cells 0.1 % D-Dimer, Quantitative 0.63 H 0.0-0.49 mg/L FEU Total Bilirubin 0.5 0.2-1.0 mg/dL Aspartate Amino Transferase (AST) < 8 L 13-40 U/L Alanine Aminotransferase (ALT) 14 7-40 U/L Alkaline Phosphatase 96 46-116 U/L B-Type Natriuretic Peptide 6.47 0-100 pg/mL Total Protein 8.0 5.7-8.2 g/dL Albumin 5.2 H 3.2-4.8 g/dL Assessment Noncardiac chest pain, likely musculoskeletal Rule out structural heart disease Hypertension Dyslipidemia Qzo-[id number]-kfscqjdpa diabetes mellitus Nicotine dependence Obesity Plan/Recommendation (Dr. Winslow) We will continue further cardiac evaluation with a transthoracic echocardiogram to rule out structural heart disease. Heart Score is 3 points placing the patient at a low score for major cardiac events. Likely noncardiac chest pain, appears to be musculoskeletal in nature. Consider an outpatient stress test if deemed to be necessary. Otherwise in the setting of an unremarkable echocardiogram, there is no further cardiac work-up indicated at this time. Thank you for allowing us to participate in this patient's care. Please call if you have any questions or concerns. This medical document was created using an electronic medical record system with voice recognition software and computerized dictation system. Although this document has been carefully reviewed, there might still be some phonetic and typographical errors. Occasional wrong-word or ``sound-alike substitutions may have occurred due to the inherent limitations of voice recognition software. These areas are purely typographical due to imperfections of the software programs and do not reflect any compromise in the patient's medical care. Please read the chart carefully and recognize, using context, where these substitutions have occurred. Plan discussed with: Patient, Other NYHA Physical activity limitations: NA Date of Service: August 01, 2024 Billing Provider: JANET SANDRA BLEACHER LARD Cardiology Common Codes: [id number] INP/OBS CARE (High) TEENA WINSLOW MD 08/02/24 0746: Date Seen: August 01, 2024 Family History: Diabetes mellitus G8 FATHER Allergies: Coded Allergies: NO KNOWN ALLERGIES (Unverified , 03/22/21) Home Meds Reported Medications Gabapentin (Neurontin) 300 Mg Cap, 3 CAP PO TID, #90 CAP 3 Refills 08/01/24 Atenolol (Atenolol) 50 Mg Tab, 50 MG PO DAILY for 30 Days, MG 03/23/21 Clonidine Hydrochloride (Clonidine Hcl) 0.1 Mg Tab, 0.1 MG PO DAILY for 30 Days, MG 03/23/21 Atorvastatin Calcium (Lipitor) 20 Mg Tab, 1 TAB PO DAILY, #90 TAB 1 Refill 03/23/21 Metformin Hydrochloride (Metformin Hcl) 850 Mg Tab, 850 MG PO for 30 Days, MG 03/23/21 Aspirin (Aspir-Low) 81 Mg Tab, 81 MG PO DAILY for 30 Days, MG 03/23/21 Lisinopril (Lisinopril) 20 Mg Tab, 1 TAB PO DAILY, #30 TAB 5 Refills 03/23/21 Plan/Recommendation 64yo male admitted with UTI- elevated WBC, + UA. Symptomatic. Also ongoing uncontrolled peripheral neuropathy pain. Uncontrolled diabetes. Noncardiac chest pain. EKG- sinus tach, LAE. Trop negative. Recommend Aspirin and Statin for primary prevention of ASCVD. Outpatient evaluation and stress testing in setting of multiple risk factors. Plan discussed with: Patient Date of Service: August 01, 2024 Cardiology Common Codes: [id number] INP/OBS CARE (Mod) JANET SANDRA August 01, 2024 13:56 TEENA WINSLOW MD August 02, 2024 07:46
[2024-08-01 14:04] LABS: Magnesium 1.3 mg/dL (1.6-2.6)
[2024-08-01] MEDS: MAGNESIUM SULFATE 1GM/100ML 100 ML IV SCH (16:55)
[2024-08-01] MEDS: ZOLPIDEM TARTRATE 5 MG TAB PO PRN (21:20)
[2024-08-01] MEDS: GABAPENTIN 300 MG CAP PO SCH (21:21)
[2024-08-02] VITALS (8 sets, daily range): BP systolic 98–122; BP diastolic 53–79; PULSE 85–93; RESP 17–20; TEMP 98.2–99.6; O2SAT 91–99
--- NOTE | 2024-08-02 07:55 | DVHSR ---
APPROVED REPORT EXAM: Two-dimensional and M-mode echocardiogram with Doppler and color Doppler. Blood Pressure: 159/98 mmHg INDICATION Chest Pain RISK FACTORS Height: 5'8", Weight: 199 DIMENSIONS LVDd4.7 (3.8-5.7cm)LA (2D)4.5 (1.9-4.0cm)Aortic Root3.9 (2.0-3.7cm) LVDs2.6 (2.5-4.0cm)LA (MM) (1.9-4.0cm)Aortic Cusp Exc2.4 (1.5-2.0cm) EF (%) 74.0 (55-70%)Rt. Atrium4.3 (1.9-4.0cm)Asc. Aorta cm IVSd1.5 (0.7-1.1cm)RV (D)3.8 (1.8-2.4cm) PWd1.2 (0.7-1.1cm) Mitral Valve MitralMitral Stenosis E wave0.63m/sMV Mean GR.mmHg A wave0.91m/sMV Peak GR.mmHg E/A ratio0.72D MVAcm2 DECEL [id number] 1/2 Tim[place] Aortic Valve Aortic ValveAortic Stenosis V11.37m/Stanford Mean GR.4mmHg V21.35m/Stanford Peak GR.7mmHg LVOT Diameter2.2 (1.8-2.4cm)Doppler AVA3.86cm2 Pulmonic Valve V20.94m/s Other Information Quality : Technically LimitedRhythm : Technically limited study due to body habitus. Conclusion lvef 60% mild LVH normal rv function left atrium enlarged no severe valve abnormalities noted
[2024-08-02] MEDS ORDERED: DEXTROSE (50%) 50ML SYRG IV PRN (12:00)
--- NOTE | 2024-08-02 12:00 | DVHPN2 ---
Progress Note Date Seen: August 02, 2024 Medical Necessity Reason Pt with a Central, PICC or Fol: No Subjective Patient reports: No new complaints Review of Systems: HEENT:Normal, CVS:Normal, RESPIRATORY:Normal, GI:Normal, :Normal, MSK:Normal, NEURO:Normal Objective vital signs Vital Sign Date Time Temp Pulse Resp B/P (MAP) Pulse Ox O2 Delivery O2 Flow Rate FiO2 08/02/24 08:00 89 94 Room Air* 0 21 08/02/24 05:00 98.9 18 116/67 (83) 98.9 Total Intake and Output 08/01/24 08/01/24 08/02/24 15:00 23:00 07:00 Intake Total 800 ml 0 ml Output Total 2 ml 500 ml Balance 798 ml -500 ml medications Current Medications Medications Dose Ordered Sig/Harrison Route Start Time Stop Time Status Last Admin Dose Admin Aspirin 81 mg DAILY PO 08/01/24 10:00 08/02/24 09:43 81 MG Atenolol 50 mg DAILY PO 08/01/24 10:00 08/01/24 09:43 50 MG Atorvastatin Calcium 20 mg HS PO 07/31/24 22:00 08/01/24 21:22 20 MG Lisinopril 20 mg DAILY PO 08/01/24 10:00 08/01/24 09:44 20 MG Diagnostic Test (Pha) 1 strip ACHS 07/31/24 22:00 08/02/24 06:34 1 STRIP Insulin Human Regular ACHS SC 07/31/24 22:00 08/01/24 21:31 6 UNITS Dextrose 50 ml UD PRN IV 07/31/24 21:45 Acetaminophen/ Hydrocodone Bitart 1 tab Q4HP PRN PO 07/31/24 21:45 08/02/24 09:43 1 TAB Ondansetron HCl 4 mg Q4HP PRN IV 07/31/24 21:45 Acetaminophen 650 mg Q6HP PRN PO 07/31/24 21:45 Nitroglycerin 0.4 mg Q5MINP PRN SL 07/31/24 21:45 Morphine Sulfate 2 mg Q30M PRN IV 07/31/24 21:45 Gabapentin 900 mg TID PO 08/01/24 22:00 08/02/24 06:35 900 MG Zolpidem Tartrate 5 mg HSPRN PRN PO 08/01/24 12:30 08/01/24 21:20 5 MG Examination: GENERAL:Normal, HEENT:Normal, NECK:Normal, LUNGS:Normal, CVS:Normal, ABDOMEN:Normal, MSK:Normal, SKIN:Normal, NEURO:Normal, :Normal laboratory and microbiology Laboratory Tests 08/01/24 04:41 07/31/24 18:58 Test 08/01/24 04:41 Range/Units Serum Glucose 268 H 74-106 mg/dL Problem List/Assessment/Plan Problem List/Assessment/Plan #1 chest pain ?cad: no further work up #2 dm: ssi, metformin #3 htn #4 peripheral neuropathy: resume meds #5 tobacco abuse: advised to quit, nicotine patch- time spent 11 mins #6 obesity #7 uti: culture, iv rocephin #8 ?bph: check usg advance care planning- full code- time spent 18mins Plan discussed with: Patient My Orders My Orders Orders - JIMMY STORY MD Procedure Category Date Status Time * Cardiology Consult CONS 08/01/24 Transmitted 12:02 Zolpidem Tartrate PHA 08/01/24 In Process (Ambien) 12:30 Gabapentin Capsule PHA 08/01/24 In Process (Neurontin Capsule) 22:00 Consistent DIET 08/02/24 Transmitted Carb(Ccho)Diabetes Lunch Kidney US 08/02/24 Transmitted 11:54 Metformin PHA 08/02/24 Transmitted Hydrochloride 18:00 Glucose Blood PHA 08/02/24 Transmitted (Accu-Chek Comfort 17:00 Bedtime Insulin Scale PHA 08/02/24 Transmitted 22:00 Moderate Insulin Ss PHA 08/02/24 Transmitted 17:00 Dextrose 50% Syringe PHA 08/02/24 Transmitted 12:00 Ceftriaxone Ivpb PHA 08/03/24 Transmitted Rocephin 09:00 Ceftriaxone Ivpb PHA 08/02/24 Transmitted Rocephin 12:00 Tamsulosin PHA 08/02/24 Transmitted Hydrochloride (Flomax) 12:00 Tamsulosin PHA 08/02/24 Transmitted Hydrochloride (Flomax) 18:00 Discontinue Tele ILIANA 08/02/24 Transmitted 11:54 Transfer Orders XFER 08/02/24 Transmitted 11:54 Magnesium Shaun PHA 08/02/24 Transmitted 12:00 Basic Metabolic Panel LAB 08/03/24 Verified 06:00 Complete Blood Count LAB 08/03/24 Verified 06:00 Magnesium LAB 08/03/24 Verified 05:00 * Receptionist Telephone Operator CONS 08/02/24 Transmitted Consult Urine Bacterial ABIDA 08/02/24 Transmitted Culture 11:54 Date of Service: August 02, 2024 Billing Provider: JIMMY STORY MD Common Visit Codes: [id number] INP/OBS CARE(HIGH) JIMMY STORY MD August 02, 2024 12:00
--- NOTE | 2024-08-02 12:47 | DVH ---
US KIDNEY HISTORY: uti COMPARISON: None TECHNIQUE: Transverse and longitudinal grayscale and color doppler images were obtained of the kidney s and bladder. FINDINGS: Right kidney: Size: 12.0 cm Cortical thickness: Normal Echogenicity: Normal Stones: None Masses: None Hydronephrosis: None Ureters: Not well visualized. Other: None Left kidney: Size: 12.4 cm Cortical thickness: Normal Echogenicity: Normal Stones: None Masses: None Hydronephrosis: None Ureters: Not well visualized. Other: None Bladder: Debris is seen . Other: None. IMPRESSION: Unremarkable renal ultrasound.
[2024-08-02] MEDS: MAGNESIUM SULFATE 1GM/100ML 100 ML IV SCH (12:55)
[2024-08-02] MEDS: TAMSULOSIN HYDROCHLORIDE 0.4 MG CAP PO ONE (12:55)
[2024-08-02] MEDS: cefTRIAXone 1GM/50ML D5W 50 ML IV ONE (15:00)
[2024-08-02] MEDS: InsuLIN REG 1unit/0.01ml Soln (100units/ml) SC SCH ×2 (17:34→21:50)
[2024-08-02] MEDS: ACCU-CHEK COMFORT CURVE STRIP VI SCH (17:34)
[2024-08-02] MEDS: metFORMIN HYDROCHLORIDE 850 MG TAB PO SCH (17:35)
[2024-08-03] VITALS (8 sets, daily range): BP systolic 100–142; BP diastolic 56–89; PULSE 59–89; RESP 16–20; TEMP 97.5–98.7; O2SAT 94–97
[2024-08-03] MEDS: ACETAMINOPHEN 325 MG TAB PO PRN (03:37)
[2024-08-03 08:08] LABS: Anion Gap 9 (5-15); Carbon Dioxide 26 mmol/L (20-31); Potassium 4.1 mmol/L (3.5-5.1)
[2024-08-03 08:15] LABS: BUN/Creatinine Ratio 29.9 (10.0-20.0); Hematocrit 36.6 % (41.0-53.0); Hemoglobin 13.2 g/dL (13.5-17.5); Magnesium 1.7 mg/dL (1.6-2.6); Mean Corpuscular Hemoglobin 31.8 pg (28.0-32.0); Mean Corpuscular Hgb Conc. 36.1 g/dL (32.0-36.0); Mean Corpuscular Volume 88.1 fL (80.0-100.0); Platelet Count (auto) 205 10^3/uL (140-450); Red Blood Cells 4.15 10^6/uL (4.5-5.90); Red Cell Distribution Width 12.5 % (11.8-14.3); White Blood Cell 3.3 10^3/uL (4.4-10.8)
[2024-08-03 08:16] LABS: Blood Urea Nitrogen 23 mg/dL (9-23); Calcium 10.5 mg/dL (8.7-10.4); Chloride 98 mmol/L (98-107); Glucose 274 mg/dL (74-106); Sodium 133 mmol/L (136-145)
[2024-08-03 08:19] LABS: Basophils % (manual) 0 (0.0-2.0); Blast Cells 0; Metamyelocytes % 0; Myelocytes % 0; Promyelocytes % 0
[2024-08-03] MEDS: cefTRIAXone 1GM/50ML D5W 50 ML IV SCH (08:54)
[2024-08-03 09:02] LABS: Band Neutrophils % (manual) 1; Eosinophils % (manual) 1 (0-7); Lymphocytes % (manual) 33 (10.0-50.0); Monocytes % (manual) 5 (0-12); Platelet Estimate Adequate; Reactive Lymphocytes 3
--- NOTE | 2024-08-03 11:02 | DVHPN2 ---
Progress Note Date Seen: August 03, 2024 Medical Necessity Reason Pt with a Central, PICC or Fol: No Subjective Patient reports: No new complaints Review of Systems: HEENT:Normal, CVS:Normal, RESPIRATORY:Normal, GI:Normal, :Normal, MSK:Normal, NEURO:Normal Objective vital signs Vital Sign Date Time Temp Pulse Resp B/P (MAP) Pulse Ox O2 Delivery O2 Flow Rate FiO2 08/03/24 08:56 66 120/61 08/03/24 08:33 97.6 17 97 97.6 08/03/24 08:00 Room Air* 0 21 Total Intake and Output 08/02/24 08/02/24 08/03/24 15:00 23:00 07:00 Intake Total 200 ml 900 ml 550 ml Balance 200 ml 900 ml 550 ml medications Current Medications Medications Dose Ordered Sig/Harrison Route Start Time Stop Time Status Last Admin Dose Admin Aspirin 81 mg DAILY PO 08/01/24 10:00 08/03/24 08:56 81 MG Atenolol 50 mg DAILY PO 08/01/24 10:00 08/03/24 08:56 50 MG Atorvastatin Calcium 20 mg HS PO 07/31/24 22:00 08/02/24 21:34 20 MG Lisinopril 20 mg DAILY PO 08/01/24 10:00 08/01/24 09:44 20 MG Acetaminophen/ Hydrocodone Bitart 1 tab Q4HP PRN PO 07/31/24 21:45 08/03/24 08:54 1 TAB Ondansetron HCl 4 mg Q4HP PRN IV 07/31/24 21:45 Acetaminophen 650 mg Q6HP PRN PO 07/31/24 21:45 08/03/24 03:37 650 MG Nitroglycerin 0.4 mg Q5MINP PRN SL 07/31/24 21:45 Morphine Sulfate 2 mg Q30M PRN IV 07/31/24 21:45 Gabapentin 900 mg TID PO 08/01/24 22:00 08/03/24 06:01 900 MG Zolpidem Tartrate 5 mg HSPRN PRN PO 08/01/24 12:30 08/02/24 21:46 5 MG Metformin HCl 850 mg BIDWM PO 08/02/24 18:00 08/03/24 08:53 850 MG Diagnostic Test (Pha) 1 strip ACHS 08/02/24 17:00 08/03/24 06:02 1 STRIP Insulin Human Regular HS SC 08/02/24 22:00 08/02/24 21:50 10 UNITS Insulin Human Regular AC SC 08/02/24 17:00 08/03/24 06:08 9 UNITS Dextrose 50 ml UD PRN IV 08/02/24 12:00 Ceftriaxone Sodium 50 ml @ 100 mls/hr DAILY@09 IV 08/03/24 09:00 08/03/24 08:54 100 MLS/HR Tamsulosin HCl 0.4 mg QPM PO 08/03/24 18:00 Examination: GENERAL:Normal, HEENT:Normal, NECK:Normal, LUNGS:Normal, CVS:Normal, ABDOMEN:Normal, MSK:Normal, SKIN:Normal, NEURO:Normal, :Normal laboratory and microbiology Laboratory Tests 08/03/24 06:33 Test 08/03/24 06:33 Range/Units Serum Glucose 274 H 74-106 mg/dL Microbiology Date/Time Source Procedure Growth Status 08/02/24 13:00 Voided Urine Urine Culture - Preliminary Resulted Problem List/Assessment/Plan Problem List/Assessment/Plan #1 chest pain ?cad: no further work up #2 dm: ssi, metformin, lantus #3 htn #4 peripheral neuropathy: resume meds #5 tobacco abuse: advised to quit, nicotine patch- time spent 11 mins #6 obesity #7 uti: culture, iv rocephin #8 ?bph: check usg advance care planning- full code- time spent 18mins Plan discussed with: Patient My Orders My Orders Orders - JIMMY STORY MD Procedure Category Date Status Time Consistent DIET 08/02/24 Transmitted Carb(Ccho)Diabetes Lunch Kidney US 08/02/24 Resulted 11:54 Metformin PHA 08/02/24 In Process Hydrochloride 18:00 Glucose Blood PHA 08/02/24 In Process (Accu-Chek Comfort 17:00 Insulin R (Human) PHA 08/02/24 In Process (Insulin R) 22:00 Insulin R (Human) PHA 08/02/24 In Process (Insulin R) 17:00 Dextrose 50% Syringe PHA 08/02/24 In Process 12:00 Ceftriaxone 1gm/50ml PHA 08/03/24 In Process D5w (Rocephin) 09:00 Discontinue Tele ILIANA 08/02/24 In Process 11:54 Transfer Orders XFER 08/02/24 Transmitted 11:54 * Shingle Trimmer CONS 08/02/24 Transmitted Consult Urine Bacterial ABIDA 08/02/24 In Process Culture 11:54 Tamsulosin PHA 08/03/24 In Process Hydrochloride (Flomax) 18:00 Insulin Lantus PHA 08/03/24 Verified (Glargine) (Lantus) 11:00 Insulin Lantus PHA 08/03/24 Verified (Glargine) (Lantus) 22:00 Date of Service: August 03, 2024 Billing Provider: JIMMY STORY MD Common Visit Codes: [id number] INP/OBS CARE(HIGH) JIMMY STORY MD August 03, 2024 11:02
[2024-08-03] MEDS: INSULIN LANTUS (GLARGINE) 1 /0.01ml (100units/ml) SC ONE (11:44)
[2024-08-03] MEDS: TAMSULOSIN HYDROCHLORIDE 0.4 MG CAP PO SCH (17:18)
[2024-08-03] MEDS: INSULIN LANTUS (GLARGINE) 1 /0.01ml (100units/ml) SC SCH (21:56)
[2024-08-04] VITALS (7 sets, daily range): BP systolic 98–137; BP diastolic 66–80; PULSE 16–92; RESP 16–96; TEMP 97.4–97.8; O2SAT 94–100
--- NOTE | 2024-08-04 14:41 | DVHDS2 ---
Discharge Summary Date of Admission July 31, 2024 at 21:36 Date of Discharge: August 04, 2024 Labs/Diagnostic Data: Laboratory Results Test 08/04/24 11:04 08/03/24 06:33 08/01/24 11:00 08/01/24 04:41 POC Glucose 276 mg/dl (70-106) White Blood Count 3.3 10^3/uL (4.4-10.8) Red Blood Count 4.15 10^6/uL (4.5-5.90) Hemoglobin 13.2 g/dL (13.5-17.5) Hematocrit 36.6 % (41.0-53.0) Mean Corpuscular Volume 88.1 fL (80.0-100.0) Mean Corpuscular Hemoglobin 31.8 pg (28.0-32.0) Mean Corpuscular Hemoglobin Concent 36.1 g/dL (32.0-36.0) Red Cell Distribution Width 12.5 % (11.8-14.3) Platelet Count 205 10^3/uL (140-450) Mean Platelet Volume 8.0 fL (6.9-10.8) Neutrophils (%) (Auto) % (37.0-80.0) Lymphocytes (%) (Auto) % (10.0-50.0) Monocytes (%) (Auto) % (0.0-12.0) Basophils (%) (Auto) % (0.0-2.0) Neutrophils # (Auto) 10 ^3/uL (1.6-8.6) Lymphocytes # (Auto) 10 ^3/uL (0.4-5.4) Monocytes # (Auto) 10 ^3/uL (0-1.3) Differential Total Cells Counted 100.0 (100) Neutrophils % (Manual) 57 (37.0-80.0) Band Neutrophils % (Manual) 1 Lymphocytes % (Manual) 33 (10.0-50.0) Monocytes % (Manual) 5 (0-12) Eosinophils % (Manual) 1 (0-7) Basophils % (Manual) 0 (0.0-2.0) Metamyelocytes % (manual) 0 Myelocytes % (Manual) 0 Promyelocytes % (Manual) 0 Blast Cells % (Manual) 0 Reactive Lymphocytes 3 Platelet Estimate Adequate Sodium Level 133 mmol/L (136-145) Potassium Level 4.1 mmol/L (3.5-5.1) Chloride Level 98 mmol/L (98-107) Carbon Dioxide Level 26 mmol/L (20-31) Anion Gap 9 (5-15) Blood Urea Nitrogen 23 mg/dL (9-23) Creatinine 0.77 mg/dL (0.700-1.30) Glomerular Filtration Rate Calc 101 mL/min (>90) BUN/Creatinine Ratio 29.9 (10.0-20.0) Serum Glucose 274 mg/dL (74-106) Calcium Level 10.5 mg/dL (8.7-10.4) Magnesium Level 1.7 mg/dL (1.6-2.6) Urine Color Red (Yellow) Urine Clarity Cloudy (Clear) Urine pH 5.5 (5.0-9.0) Urine Specific [place] 1.024 (1.001-1.035) Urine Protein 1+ (Negative) Urine Ketones Negative (Negative) Urine Blood 3+ /uL (Negative) Urine Nitrite Negative (Negative) Urine Bilirubin Negative (Negative) Urine Urobilinogen Normal mg/dL (Negative) Urine Leukocyte Esterase 2+ /uL (Negative) Urine RBC 1133 /hpf (0 - 3) Urine Microscopic WBC 108 /HPF (0-3) Urine Squamous Epithelial Cells Few /hpf (<5) Urine Bacteria Few /hpf (None Seen) Urine Glucose 4+ mg/dL (Normal) Urine Opiates Screen Pos (NEGATIVE) Urine Fentanyl Screen Neg (NEGATIVE) Urine Barbiturates Screen Neg (NEGATIVE) Urine Phencyclidine Screen Neg (NEGATIVE) Urine Amphetamines Screen Neg (NEGATIVE) Urine Benzodiazepines Screen Neg (NEGATIVE) Urine Cocaine Screen Neg (NEGATIVE) Urine Cannabinoids Screen Neg (NEGATIVE) Hemoglobin A1c 10.1 % A1C (<5.7) Triglycerides Level 109 mg/dL (< 150) Cholesterol Level 174 mg/dL (< 200) LDL Cholesterol 130 mg/dL (< 100) HDL Cholesterol 32 mg/dL (40-59) Thyroid Stimulating Hormone (TSH) 0.18 uIU/mL (0.55-4.78) Test 07/31/24 19:49 07/31/24 18:58 Troponin I High Sensitivity < 3 ng/L (</=54) Eosinophils (%) (Auto) 0.3 % (0.0-7.0) Eosinophils # (Auto) 0 10 ^3/uL (0-0.8) Basophils # (Auto) 0.1 10 ^3/uL (0-0.2) Nucleated Red Blood Cells 0.1 % D-Dimer, Quantitative 0.63 mg/L FEU (0.0-0.49) Total Bilirubin 0.5 mg/dL (0.2-1.0) Aspartate Amino Transferase (AST) < 8 U/L (13-40) Alanine Aminotransferase (ALT) 14 U/L (7-40) Alkaline Phosphatase 96 U/L (46-116) B-Type Natriuretic Peptide 6.47 pg/mL (0-100) Total Protein 8.0 g/dL (5.7-8.2) Albumin 5.2 g/dL (3.2-4.8) Other Laboratory Tests 08/03/24 06:33 Brief Hx & Hospital Course: SEE DICTATED NOTE Condition at Discharge: Fair Final Diagnosis/Problems List UTI Discharge Disposition: Home Discharge Instruct/Medications Diet: Consistent carbohydrate Activity: No Restrictions, As Tolerated Follow Up/Referral: FU WITH PCP IN 1 WK Medications: RESUME HOME MEDS SCRIPT TO PHARMACY Discharge Statement: "Patient was advised to return to the ER or call 911 if any headaches, dizziness, shortness of breath, chest pain, abdominal pain, bleeding, fevers, or worsening of medical condition. Patient was counseled about treatment plan, medications, possible side effects, patientverbalized understanding. All questions were answered to the best of my ability. This discharge took greater then 30 minutes in planning, reviewing documentation, counseling the patient, and discussing with other team members." ASSESSMENT ASSESSMENT Assessment UTI Date of Service: August 04, 2024 Billing Provider: JIMMY STORY MD Common Visit Codes: [id number] DISCH DAY >30min JIMMY STORY MD August 04, 2024 14:41
[2024-08-04] MEDS ORDERED: LEVO500T91 PO (14:44)
[2024-08-04] MEDS ORDERED: TAMS-35 PO (14:44)
[2024-08-04] MEDS ORDERED: INSU1INJ19 SC (14:44)
--- NOTE | 2024-08-04 15:49 | DVHDS ---
DATE OF DISCHARGE: 08/04/2024 HISTORY OF PRESENT ILLNESS: The patient is a 64-year-old gentleman who was admitted with complaints of chest pains and pain in the legs. He has a history of diabetes, hypertension and previous prostate surgery. HOSPITAL COURSE: The patient had UTI with E. coli sensitive to Levaquin. The patient's diabetes was uncontrolled and he was placed on metformin along with Lantus insulin. The patient's CT angiography was negative for DVT. The patient had a renal ultrasound that showed no obstruction. He will now be discharged home to be on Levaquin 500 mg daily for 7 days, Basaglar 20 units at bedtime, and Flomax 0.4 mg at bedtime. He will follow up with his primary in 1 week. FINAL DIAGNOSES: Therefore, * Chest pain with questionable coronary artery disease. No further workup was recommended. * Uncontrolled diabetes mellitus. * UTI due to E. coli. * Peripheral neuropathy. * Hypertension. * Obesity. * Tobacco abuse. * Likely history of prostate cancer, status post surgery. Time spent in discharge planning and review of plan with the patient and nursing was 38 minutes. MD SOLIS Lopez/VLADISLAV/SID TID: [id number] RECEIPT: [id number]
== END 2024-08-04 17:20 | disposition home or self-care (01) | DRG 303 ==
LOC: EDBD 18:18 → ER 18:18 → OVERFLOW 21:36 → TELE-WESTW 21:40 → WEST WING 08-04 02:59
PROVIDERS: ADMIT Internal Medicine; ATTEND Internal Medicine
DX: I25.10 Atherosclerotic heart disease of native coronary artery without angina pectoris (principal); N39.0 Urinary tract infection, site not specified; E87.1 Hypo-osmolality and hyponatremia; E66.9 Obesity, unspecified; I10 Essential (primary) hypertension; E11.42 Type 2 diabetes mellitus with diabetic polyneuropathy; F17.210 Nicotine dependence, cigarettes, uncomplicated; E11.65 Type 2 diabetes mellitus with hyperglycemia; E78.5 Hyperlipidemia, unspecified; B96.20 Unspecified Escherichia coli [E. coli] as the cause of diseases classified elsewhere; Z79.84 Long term (current) use of oral hypoglycemic drugs; Z79.899 Other long term (current) drug therapy; Z79.82 Long term (current) use of aspirin; Z83.3 Family history of diabetes mellitus; Z82.49 Family history of ischemic heart disease and other diseases of the circulatory system; Z85.47 Personal history of malignant neoplasm of testis; Z85.46 Personal history of malignant neoplasm of prostate; Z68.30 Body mass index [BMI] 30.0-30.9, adult
CPT/HCPCS: 36415; 71045; 71275; 76775; 80048; 80053; 80061; 80307; 81001; 82962; 83036; 83735; 83880; 84443; 84484; 85007; 85025; 85027; 85379; 87086; 87088; 87186; 93005; 93306; 93970; 96360; G0378; J1815

== ENCOUNTER 2025-01-19 23:32 | Emergency (ER) | payer OTHER, MEDICAID ==
[~2025-01-19] VITALS: Ht 172.7 cm; Wt 93.0 kg
[~2025-01-19 23:32] MED LIST changes: +GABA300C PO; +INSU1INJ19 SC; +LEVO500T91 PO; +TAMS-35 PO
[2025-01-19 23:41] VITALS: BP 106/58; PULSE 83; RESP 20; TEMP 98.3; O2SAT 99
[2025-01-20] MEDS ORDERED: IBUP-1455 PO (00:11)
[2025-01-20] MEDS ORDERED: CEPH250C PO (00:11)
--- NOTE | 2025-01-20 00:11 | ED.PDOC ---
History of Present Illness(SKN HPI Comments Patient is a 64-year-old morbidly obese male who arrives the ED today for evaluation of multiple abscesses to the right axillary region. Patient states the wounds came on several days ago and have continued. Patient states some of the wounds has been draining. Patient denies any fever nausea or vomiting. Vital signs were stable. Chief Complaint: Abscess Time Seen by MD: 23:37 History of Present Illness: Nurses Notes Allergies: Coded Allergies: Phenol (Verified Allergy, Unknown, 01/19/25) Propylene Glycol (Verified Allergy, Unknown, 01/19/25) Semaglutide (Verified Allergy, Unknown, 01/19/25) Home Meds Active Scripts Tamsulosin Hcl (Flomax) 0.4 Mg Cap, 0.4 MG PO QPM for 30 Days, #30 CAP 3 Refills Prov:JIMMY STORY MD 08/04/24 Levofloxacin Hemihydrate (LEVAQUIN 500 MG) 500 Mg Tab, 500 MG PO DAILY for 7 Days, #7 TAB Prov:JIMMY STORY MD 08/04/24 Insulin Glargine (Basaglar Kwikpen) 100 Unit/Ml Inj, 20 UNIT SC QPM for 30 Days, #1 INJ 3 Refills Prov:JIMMY STORY MD 08/04/24 Reported Medications Gabapentin (Neurontin) 300 Mg Cap, 3 CAP PO TID, #90 CAP 3 Refills 08/01/24 Atenolol (Atenolol) 50 Mg Tab, 50 MG PO DAILY for 30 Days, MG 03/23/21 Clonidine Hydrochloride (Clonidine Hcl) 0.1 Mg Tab, 0.1 MG PO DAILY for 30 Days, MG 03/23/21 Atorvastatin Calcium (Lipitor) 20 Mg Tab, 1 TAB PO DAILY, #90 TAB 1 Refill 03/23/21 Metformin Hydrochloride (Metformin Hcl) 850 Mg Tab, 850 MG PO for 30 Days, MG 03/23/21 Aspirin (Aspir-Low) 81 Mg Tab, 81 MG PO DAILY for 30 Days, MG 03/23/21 Lisinopril (Lisinopril) 20 Mg Tab, 1 TAB PO DAILY, #30 TAB 5 Refills 03/23/21 Information Source: Patient Mode of Arrival: Ambulatory Severity: Moderate Timing: Days Duration: Since onset Prehospital treatment: None Location: Other (Right axilla) Mechanism: Spontaneous Onset Occurence: Indoors Object: None Condition of Object: None Retained Foreign Body: No Wound Type: Pustule Tetanus: >5 Years Associated Signs and Symptoms: Redness, Swelling, Pus Past Medical History PAST MEDICAL HISTORY: Angina, Cancer, DM, HTN Surgical History: Denies all surgeries Family History Family History: Reviewed,noncontributory to illness Social History Smoker: Other Alcohol: Denies ETOH Use Drugs: Cocaine, Methamphetamine, Other Lives In: Home Constitutional: denies: chills, diaphoresis, fatigue, fever, malaise, sweats, weakness, others EENTM: denies: blurred vision, double vision, ear bleeding, ear discharge, ear drainage, ear pain, ear ringing, eye pain, eye redness, hearing loss, mouth pain, mouth swelling, nasal discharge, nose bleeding, nose congestion, nose pain, photophobia, tearing, throat pain, throat swelling, voice changes, others Respiratory: denies: cough, hemoptysis, orthopnea, SOB at rest, shortness of breath, SOB with excertion, stridor, wheezing, others Cardiovascular: denies: chest pain, dizzy spells, diaphoresis, Dyspnea on exertion, edema, irregular heart beat, left arm pain, lightheadedness, palpitations, PND, syncope, others Gastrointestinal: denies: abdomen distended, abdominal pain, blood streaked bowels, constipated, diarrhea, dysphagia, difficulty swallowing, hematemesis, melena, nausea, poor appetite, poor fluid intake, rectal bleeding, rectal pain, vomiting, others Genitourinary: denies: burning, dysuria, flank pain, frequency, hematuria, incontinence, penile discharge, penile sore, pain, testicle pain, testicle swelling, urgency, others Neurological: denies: dizziness, fainting, headache, left sided numbness, left sided weakness, numbness, paresthesia, pre-existing deficit, right sided numbness, right sided weakness, seizure, speech problems, tingling, tremors, weakness, others Musculoskeletal: denies: back pain, gout, joint pain, joint swelling, muscle pain, muscle stiffness, neck pain, others Integumetry: reports: wounds (Multiple right axilla abscesses); denies: bruises, change in color, change in hair/nails, dryness, laceration, lesions, lumps, rash, others Allergic/Immunocompromised: denies: Difficulty Healing, Frequent Infections, Hives, Itching, others Hematologic/Lymphatic: denies: anemia, blood clots, easy bleeding, easy bruising, swollen glands, others Endocrine: denies: excessive hunger, excessive sweating, excessive thirst, excessive urination, flushing, intolerance to cold, intolerance to heat, unexplained weight gain, unexplained weight loss, others Psychiatric: denies: anxiety, bipolar disorder, depression, hopeless, panic disorder, schizophrenia, sleepless, suicidal, others Physical Exam General Appearance: Mild Distress (Moderate distress due to axilla abscess concerns.), Normal HEENT: Normal ENT Inspection, Pharynx Normal, TMs Normal Neck: Full Range of Motion, Non-Tender, Normal, Normal Inspection Respiratory: Chest Non-Tender, Lungs Clear, No Accessory Muscle Use, No Respiratory Distress, Normal Breath Sounds Cardiovascular: No Edema, No JVD, No Murmur, No Gallop, Normal Peripheral Pulses, Regular Rate/Rhythm Breast Exam: Deferred Gastrointestinal: No Organomegaly, Non Tender, No Pulsatile Mass, Normal Bowel Sounds, Soft Genitalia: Deferred Pelvic: Deferred Rectal: Deferred Extremities: No calf tenderness, Normal inspection Neurologic: Alert Cerebellar Function: NOT DONE Reflexes: NOT DONE Skin: Wounds (Patient has multiple folliculitis abscesses noted to the right axillary region. Localized erythema and edema. Most wounds appear draining.) Lymphatic: No Adenopathy Was a procedure done? Was a procedure done?: No Differential Diagnosis (INTG) Differential Diagnosis: Other (Abscess, folliculitis) X-Ray, Labs, Meds, VS Vital Signs Date Time Temp Pulse Resp B/P (MAP) Pulse Ox O2 Delivery O2 Flow Rate FiO2 01/19/25 23:41 98.3 83 20 106/58 99 98.3 X-Ray, Labs, Meds, VS Comment Spent time discussing the concerns with the patient. Advised antibiotic therapy as directed until completion. Additionally, patient can utilize warm compresses to aid in the drainage process. Time of 1ST Reevaluation: 00:07 Reevaluation 1ST: Improved Consultation: PCP Patient Education/Counseling: Diagnosis, Treatment Family Education/Counseling: Diagnosis, Treatment SEPSIS Sepsis Screen Date sepsis recognized/suspect: Jan 19, 2025 Time Sepsis recognized/suspect: 2344 Recent Procedure: No On Antibiotic Therapy: No Respiratory Rate >20: No Heart Rate >90: No Temp<36 C (96.8 F) or >38.3 C: No SBP <90 or MAP <65 mmHG: No New Acute Mental Status Change: No Is the patient on CPAP, BIPAP,: No Physician Orders Cephalexin Capsule (Keflex Capsule) (01/20/25 00:15) Ketorolac Injection (Toradol Injection) (01/20/25 00:15) Vital Signs Date Time Temp Pulse Resp B/P (MAP) Pulse Ox O2 Delivery O2 Flow Rate FiO2 01/19/25 23:41 98.3 83 20 106/58 99 98.3 Departure 1 Departure Time of Disposition: 00:07 Impression: Primary Impression: Abscess Disposition: HOME / SELF CARE / HOMELESS Condition: Stable Additional Instructions: Advised patient utilize antibiotics as directed until completion as well as warm compresses to aid in drainage. Patient should follow up with the primary care provider once antibiotics are completed for re-evaluation. e-Prescriptions Ibuprofen Micronized (Ibuprofen) 800 Mg Tab 800 MG PO Q8HP PRN, #20 TAB Prov: LEE BARTLETT PAC 01/20/25 Cephalexin (KEFLEX CAPSULE) 250 Mg Cp 1 CAP PO QID for 10 Days, #40 CAP Prov: LEE BARTLETT PAC 01/20/25 Discharged With: Self, Friend Critical Care Note Critical Care Time?: No Stability Stability form required: No Heart Score Heart Score: Heart Score Response (Comments) Value History N/A 0 EKG N/A 0 Age N/A 0 Risk Factors N/A 0 Troponin N/A 0 Total 0 LEE BARTLETT PAC Jan 20, 2025 00:11
[2025-01-20] MEDS ORDERED: CEPHALEXIN 250 MG CAP PO ONE (00:15)
[2025-01-20] MEDS ORDERED: KETOROLAC TROMETH 60MG/2ML VIAL IM ONE (00:15)
== END 2025-01-20 04:46 | disposition home or self-care (01) ==
LOC: ER 23:35
DX: L02.411 Cutaneous abscess of right axilla (principal); F17.200 Nicotine dependence, unspecified, uncomplicated; E11.9 Type 2 diabetes mellitus without complications; I10 Essential (primary) hypertension; Z79.899 Other long term (current) drug therapy